=== PATIENT | male | born 1985 ===

== ENCOUNTER 2017-01-14 15:07 | Inpatient (IN) | payer MEDICAID, MEDICARE ==
[2017-01-14 15:07] VITALS: BMI 21.4
[2017-01-14] MEDS ORDERED: HYDROmorphone 0.5 mg/0.5 ml ISec ONE ×2 (15:28→16:19)
[2017-01-14] MEDS ORDERED: Sodium Chloride 0.9% 1,000 ML IV STA ×2 (15:30→16:47)
--- NOTE | 2017-01-14 15:45 | ED PDOC ---
HPI: Abdomen Time Seen by Provider: 01/14/17 15:14 Chief Complaint (Nursing): Abdominal Pain Chief Complaint (Provider): Abd pain History Per: Patient History/Exam Limitations: no limitations Onset/Duration Of Symptoms: Days (2) Outside of [place] travel?: No Current Symptoms Are (Timing): Still Present Additional Complaint(s): Pt. with diffuse abd pain and feels like his usual crohn's flare. Also with non bloody nausea, vomit, diarrhea. No back pain, chest pain, dyspnea, weakness , headaches. No fever. On suboxone, but not taking for 5 days. 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) - Surgical History Surgical History: Denies: Appendectomy, Cholecystectomy, Coronary Stent - Family History Family History: States: Unknown Family Hx - Social History Current smoker - smoking cessation education provided: No Alcohol: None Drugs: Denies - Immunization History Hx Tetanus Toxoid Vaccination: No Hx Influenza Vaccination: No Hx Pneumococcal Vaccination: No - Home Medications Home Medications: Ambulatory Orders Medication Instructions Recorded Famotidine [Pepcid] 20 mg IVP Q12 vial 11/20/16 - Allergies Allergies/Adverse Reactions: Allergies Allergy/AdvReac Type Severity Reaction Status Date / Time ciprofloxacin Allergy RASH Verified 01/14/17 15:09 iodine Allergy ANAPHYLAXIS Verified 01/14/17 15:09 morphine Allergy RASH Verified 01/14/17 15:09 Review of Systems ROS Statement: Except As Marked, All Systems Reviewed And Found Negative Gastrointestinal: Positive for: Abdominal Pain Physical Exam - Reviewed Nursing Documentation Reviewed: Yes Vital Signs Reviewed: Yes - Physical Exam Appears: Positive for: Non-toxic, No Acute Distress Head Exam: Positive for: ATRAUMATIC, NORMAL INSPECTION, NORMOCEPHALIC Skin: Positive for: Normal Color, Warm, DRY Eye Exam: Positive for: EOMI, Normal appearance, PERRL ENT: Positive for: Normal ENT Inspection Neck: Positive for: Normal, Painless ROM Cardiovascular/Chest: Positive for: Regular Rate, Rhythm Respiratory: Positive for: CNT, Normal Breath Sounds Gastrointestinal/Abdominal: Positive for: Bowel Sounds, Soft, Tenderness ( diffuse and guarding) Back: Positive for: Normal Inspection. Negative for: L CVA Tenderness, R CVA Tenderness Extremity: Positive for: Normal ROM Neurologic/Psych: Positive for: Alert, Oriented - Laboratory Results Result Diagrams: 01/14/17 15:40 01/14/17 15:40 Interpretation Of Abn Labs: 11.4 wbc, 22 bands - ECG O2 Sat by Pulse Oximetry: 98 Pulse Ox Interpretation: Normal - Progress ED Course And Treament: 1749: Stable. Dr. Madera to fu on ct and dispo. Disposition - Clinical Impression Clinical Impression: Abdominal pain - Patient ED Disposition Is Patient to be Admitted: Transfer of Care - Disposition Disposition Time: 17:50 Condition: STABLE Patient Signed Over To: Collins Madera
[2017-01-14 15:51] LABS: BASO % 0.3 % (0.0-2.0); EOS # 0.1 K/uL (0.0-0.7); EOS % 0.8 % (0.0-4.0); LYMPH # 1.5 K/uL (1.0-4.3); LYMPH % 12.9 % (20.0-40.0); MEAN CELL VOLUME 82.5 fl (80.0-94.0); MEAN CORPUSCULAR HEMOGLOBIN 25.7 pg (27.0-31.0); MEAN CORPUSCULAR HGB CONC 31.1 g/dL (33.0-37.0); MEAN PLATELET VOLUME 7.5 fl (7.2-11.7); MONO % 17.2 % (0.0-10.0); NEUT # 7.8 K/uL (1.8-7.0); NEUT % 68.8 % (50.0-75.0); NRBC % 0.1 % (0.0-0.0); RED CELL DISTRIBUTION WIDTH 19.9 % (11.5-14.5); WHITE BLOOD COUNT 11.4 K/uL (4.8-10.8)
[2017-01-14 15:52] LABS: PLATELET COUNT 741 K/uL (130-400)
[2017-01-14 15:59] LABS: ALB/GLOB RATIO 0.8 (1.0-2.1); ALKALINE PHOSPHATASE 104 U/L (38-126); ALT/SGPT 35 U/L (21-72); AST/SGOT 29 U/L (17-59); BILIRUBIN,TOTAL 0.6 mg/dl (0.2-1.3); BLOOD UREA NITROGEN 17 mg/dl (9-20); CALCIUM 9.3 mg/dL (8.4-10.2); CARBON DIOXIDE 26 mmol/L (22-30); CHLORIDE 95 mmol/L (98-107); GFR AFRICAN-AMERICAN > 60; GLUCOSE,RANDOM 110 mg/dL (75-110); LIPASE 12 U/L (23-300); SODIUM 144 mmol/l (132-148); TOTAL PROTEIN 9.4 G/DL (6.3-8.2)
[2017-01-14 16:28] LABS: EOSINOPHIL 1 % (0-7); NEUTROPHIL 52 % (42-75); TOTAL CELLS COUNTED 100
[2017-01-14 16:30] LABS: LARGE PLATELETS PRESENT; SPHEROCYTES SLIGHT
[2017-01-14 17:13] LABS: VENOUS BLOOD GAS PCO2 50 mmHg (40-60)
[2017-01-14] MEDS ORDERED: Sodium Chloride 0.9% 50 ML IV ONE (17:39)
[2017-01-14] MEDS ORDERED: Iohexol 300 100 ML IJ ONE (17:39)
[2017-01-14] MEDS ORDERED: metroNIDAZOLE 500mg/100ml NS 100 ML IVPB STA (17:49)
[2017-01-14] MEDS ORDERED: metroNIDAZOLE 500mg/100ml NS 100 ML IVPB ONE (17:58)
[2017-01-14] MEDS ORDERED: cefTRIAXone (Rocephin) 1 gm Inj IV ONE (18:00)
[2017-01-14] MEDS ORDERED: cefTRIAXone (Rocephin) 1 gm Inj ONE (19:13)
--- NOTE | 2017-01-14 19:30 | ED PDOC ---
- Laboratory Results Result Diagrams: 01/14/17 15:40 01/14/17 15:40 - ECG O2 Sat by Pulse Oximetry: 98 Medical Decision Making Medical Decision Makin:00 Patient is signed out to me by Eber Rosen MD pending CT scan, reevaluation and final disposition. 18:48 CT abd and pelvis w/o contrast EXAM: CT Abdomen and Pelvis Without Intravenous Contrast. CLINICAL HISTORY: 31 years old, male; Pain; Abdominal pain; Generalized; Prior surgery; Surgery date: 6+ months; Surgery type: Multiple abd SX HX chron's TECHNIQUE: Axial computed tomography images of the abdomen and pelvis without intravenous contrast. This CT exam was performed using one or more of the following dose reduction techniques: automated exposure control, adjustment of the mA and/or kV according to patient size, and/ or use of iterative reconstruction technique. EXAM DATE/TIME: 01/14/2017 3:26 PM COMPARISON: CT - ABD PELVIS PO CONTRAST ONLY 11/16/2016 10:30:35 PM FINDINGS: Lower thorax: No acute findings. ABDOMEN: Liver: Unremarkable. Gallbladder and bile ducts: Unremarkable. No calcified stones. No ductal dilation. Pancreas: Unremarkable. No ductal dilation. Spleen: Unremarkable. No splenomegaly. Adrenals: Unremarkable. No mass. Kidneys and ureters: Unremarkable. No obstructing stones. No hydronephrosis. Stomach and bowel: Stable postsurgical changes from prior bowel resection. Again noted is diffuse distention of the small and large bowel to the level of the anastomosis in the rectum. This is not significantly changed when compared with 11/16/16. Appendix: No findings to suggest acute appendicitis. PELVIS: Bladder: Unremarkable. No stones. Reproductive: Unremarkable as visualized. ABDOMEN and PELVIS: Intraperitoneal space: Unremarkable. No free air. No significant fluid collection. Bones/joints: No acute fracture. No dislocation. Soft tissues: Unremarkable. Vasculature: Unremarkable. No abdominal aortic aneurysm. Lymph nodes: Unremarkable. No enlarged lymph nodes. IMPRESSION: Again noted is diffuse distention of the small and large bowel to the level of the anastomosis in the rectum. This is not significantly changed when compared with 11/16/16. This may be due to an obstruction, a pseudoobstruction or global ileus. 19:[address] Soriano and Dr. Clark. Patient will be admitted to the hospital (med/surg) for an intestinal obstruction and crohns disease. Patient's condition is fair. Discussed results and plan to admit with patient who expresses understanding. All questions answered and there is agreement with the plan. Scribe Attestation: Documented by Lupe Cuellar, acting as a scribe for Collins Madera MD. Provider Scribe Attestation: All medical record entries made by the Scribe were at my direction and personally dictated by me. I have reviewed the chart and agree that the record accurately reflects my personal performance of the history, physical exam, medical decision making, and the department course for this patient. I have also personally directed, reviewed, and agree with the discharge instructions and disposition. Disposition Discussed With : Codey Soriano - Clinical Impression Clinical Impression: Bowel obstruction, Abdominal pain, Exacerbation of Crohn's disease - POA Present On Arrival: None - Disposition Disposition: Routine/Home Disposition Time: 19:15 Condition: STABLE
--- NOTE | 2017-01-14 19:57 | CP.PCM.HP ---
History of Present Illness - History of Present Illness History of Present Illness: 31 yo male with history of Crohns Disease post colectomy with ileoanal anastomosis complained of generalized and diffuse abdominal pain since 2 days ago accompanied watery diarrhea, nausea and vomiting. Patient claimed he has no oral intake since 2 days ago. Denied fever, chill, SOB or chest pain. Present on Admission - Present on Admission Any Indicators Present on Admission: No History of DVT/PE: No History of Uncontrolled Diabetes: No Urinary Catheter: No Decubitus Ulcer Present: No Review of Systems - Review of Systems All systems: reviewed and no additional remarkable complaints except (aside from those mentioned above, 12 point system review werte negative by me) Past Patient History - Infectious Disease Hx of Infectious Diseases: C.diff, MRSA - Tetanus Immunizations Tetanus Immunization: Unknown - Past Medical History & Family History Past Medical History?: Yes - Past Social History Smoking Status: Never Smoked Chewing Tobacco Use: No Cigar Use: No Alcohol: None Drugs: Denies - CARDIAC Hx Cardiac Disorders: No Hx Hypertension: No - PULMONARY Hx Emphysema: No Hx Pneumonia: Yes - NEUROLOGICAL Hx Neurological Disorder: No Hx Seizures: No - HEENT Hx HEENT Problems: No - RENAL Hx Chronic Kidney Disease: No - ENDOCRINE/METABOLIC Hx Endocrine Disorders: No - HEMATOLOGICAL/ONCOLOGICAL Hx Anemia: Yes - INTEGUMENTARY Hx Dermatological Problems: No - MUSCULOSKELETAL/RHEUMATOLOGICAL Hx Musculoskeletal Disorders: No Hx Rheumatoid Arthritis: No - GASTROINTESTINAL Hx Crohn's Disease: Yes Hx Diverticulitis: No - GENITOURINARY/GYNECOLOGICAL Hx Genitourinary Disorders: No - PSYCHIATRIC Hx Depression: No - SURGICAL HISTORY Hx Appendectomy: No Hx Cholecystectomy: No Hx Coronary Stent: No - ANESTHESIA Hx Anesthesia: Yes Hx Anesthesia Reactions: No Hx Malignant Hyperthermia: No Meds Allergies/Adverse Reactions: Allergies Allergy/AdvReac Type Severity Reaction Status Date / Time ciprofloxacin Allergy RASH Verified 01/14/17 15:09 iodine Allergy ANAPHYLAXIS Verified 01/14/17 15:09 morphine Allergy RASH Verified 01/14/17 15:09 Physical Exam - Constitutional Appears: Other (complaining of abdominal pain) - Head Exam Head Exam: ATRAUMATIC - Eye Exam Eye Exam: absent: Scleral icterus - ENT Exam ENT Exam: Mucous Membranes Moist - Neck Exam Neck exam: Negative for: Meningismus - Respiratory Exam Respiratory Exam: absent: Rhonchi, Wheezes, Respiratory Distress - Cardiovascular Exam Cardiovascular Exam: REGULAR RHYTHM, +S1, +S2 - GI/Abdominal Exam GI & Abdominal Exam: Normal Bowel Sounds, Soft. absent: Guarding, Rebound, Tenderness Additional comments: multiple abdominal surgical scars - Rectal Exam Rectal Exam: Deferred - Extremities Exam Extremities exam: Negative for: pedal edema - Back Exam Back exam: absent: tenderness - Neurological Exam Neurological exam: Alert, Oriented x3 - Psychiatric Exam Psychiatric exam: Normal Affect - Skin Skin Exam: Dry, Intact Results - Vital Signs Recent Vital Signs: Last Vital Signs Temp 98.7 F 01/14/17 15:09 Pulse 96 H 01/14/17 15:09 Resp 16 01/14/17 15:09 BP 126/91 H 01/14/17 15:09 Pulse Ox 98 01/14/17 19:42 - Labs Result Diagrams: 01/14/17 15:40 01/14/17 15:40 Labs: Laboratory Results - last 24 hr 01/14/17 01/14/17 15:40 17:08 WBC 11.4 H D RBC 5.57 Hgb 14.3 Hct 46.0 MCV 82.5 D MCH 25.7 L MCHC 31.1 L RDW 19.9 H Plt Count 741 H D MPV 7.5 Neut % (Auto) 68.8 Lymph % (Auto) 12.9 L [place] % (Auto) 17.2 H Eos % (Auto) 0.8 Baso % (Auto) 0.3 Neut # 7.8 H Lymph # 1.5 [place] # 2.0 H Eos # 0.1 Baso # 0.0 Neutrophils % (Manual) 52 Band Neutrophils % 22 H* Lymphocytes % (Manual) 13 L Monocytes % (Manual) 12 H Eosinophils % (Manual) 1 Platelet Estimate Increased H Large Platelets Present Poikilocytosis (manual Slight Anisocytosis (manual) Slight Spherocytes Slight Ovalocytes Slight pO2 48 VBG pH 7.40 VBG pCO2 50 VBG HCO3 28.4 VBG Total CO2 32.5 H VBG O2 Sat (Calc) 77.8 H VBG Base Excess 5.0 H VBG Potassium 3.6 Glucose 94 Lactate 1.0 FiO2 21.0 Sodium 144 136.0 Potassium 4.0 Chloride 95 L 103.0 Carbon Dioxide 26 Anion Gap 27 H BUN 17 Creatinine 0.9 Est GFR ( Amer) > 60 Est GFR (Non-Af Amer) > 60 Random Glucose 110 Calcium 9.3 Total Bilirubin 0.6 AST 29 ALT 35 Alkaline Phosphatase 104 Total Protein 9.4 H Albumin 4.3 Globulin 5.1 H Albumin/Globulin Ratio 0.8 L Lipase 12 L Venous Blood Potassium 3.6 Assessment & Plan (1) Exacerbation of Crohn's disease Status: Chronic Priority: High Comment: admit to med/surg. blood culture x 2. continue IV Rocephin and Flagyl. IV hydration with NSS 150cc/hr. keep NPO. GI consult with Dr Ingram ( GI fellow informed). Morphine 2mg IV q 4hrs prn for pain. Protonix 40mg IV daily
--- NOTE | 2017-01-14 21:15 | CP.PCM.CON ---
<Andres Clark - Last Filed: 01/14/17 21:21> History of Present Illness - History of Present Illness History of Present Illness: General Surgery Consult Re: Crohn's dz with intestinal obstruction HPI: 31M presented to ED with increasing general abdominal pain since Sunday. + Diarrhea, N/V, pain with defecation. Poor oral intake. Pt says pain is similar to last Crohn's flare in October where he Was NPO, given IVF and had a rectal tube placed. Pt has been treated multiple time for this issue. He currently is off his Crohn's meds because "they don't work" and he has not followed up with his GI doctors in many months. Currently pt C/O pain uncontrolled by meds. PMH: Crohn's, opiate dependence PSH: Colectomy with IAPA, 16 abdominal sx, anastomotic dilation for stricture SH: Denies Tobacco, EtOH, or drug use All: cipro, iodine, morphine Meds: Methadone Review of Systems - Review of Systems All systems: reviewed and no additional remarkable complaints except (as per HPI ) Past Patient History - Infectious Disease Hx of Infectious Diseases: C.diff, MRSA - Tetanus Immunizations Tetanus Immunization: Unknown - Past Medical History & Family History Past Medical History?: Yes - Past Social History Smoking Status: Never Smoked Chewing Tobacco Use: No Cigar Use: No Alcohol: None Drugs: Denies - CARDIAC Hx Cardiac Disorders: No Hx Hypertension: No - PULMONARY Hx Emphysema: No Hx Pneumonia: Yes - NEUROLOGICAL Hx Neurological Disorder: No Hx Seizures: No - HEENT Hx HEENT Problems: No - RENAL Hx Chronic Kidney Disease: No - ENDOCRINE/METABOLIC Hx Endocrine Disorders: No - HEMATOLOGICAL/ONCOLOGICAL Hx Anemia: Yes - INTEGUMENTARY Hx Dermatological Problems: No - MUSCULOSKELETAL/RHEUMATOLOGICAL Hx Musculoskeletal Disorders: No Hx Rheumatoid Arthritis: No - GASTROINTESTINAL Hx Crohn's Disease: Yes Hx Diverticulitis: No - GENITOURINARY/GYNECOLOGICAL Hx Genitourinary Disorders: No - PSYCHIATRIC Hx Depression: No - SURGICAL HISTORY Hx Appendectomy: No Hx Cholecystectomy: No Hx Coronary Stent: No - ANESTHESIA Hx Anesthesia: Yes Hx Anesthesia Reactions: No Hx Malignant Hyperthermia: No Meds Allergies/Adverse Reactions: Allergies Allergy/AdvReac Type Severity Reaction Status Date / Time ciprofloxacin Allergy RASH Verified 01/14/17 15:09 iodine Allergy ANAPHYLAXIS Verified 01/14/17 15:09 morphine Allergy RASH Verified 01/14/17 15:09 - Medications Medications: Current Medications Hydromorphone HCl (Dilaudid) 1 mg IVP Q4 PRN PRN Reason: abdominal pain Last Admin: 01/14/17 20:49 Dose: 1 mg Sodium Chloride (Sodium Chloride 0.9%) 1,000 mls @ 150 mls/hr IV .Q6H40M [facility] Metronidazole (Flagyl 500mg/100ml Ns) 100 mls @ 100 mls/hr IVPB Q8 [facility] Ceftriaxone Sodium 1 gm/ (Sodium Chloride) 100 mls @ 100 mls/hr IVPB DAILY [facility] Ondansetron HCl (Zofran Inj) 4 mg IVP Q4 [facility] Pantoprazole Sodium (Protonix Inj) 40 mg IVP DAILY [facility] Physical Exam - Constitutional Appears: Cachectic, Chronically Ill - Head Exam Head Exam: ATRAUMATIC, NORMOCEPHALIC - Eye Exam Eye Exam: EOMI. absent: Scleral icterus - ENT Exam ENT Exam: Mucous Membranes Dry Additional comments: trachea midline - Respiratory Exam Respiratory Exam: NORMAL BREATHING PATTERN. absent: Respiratory Distress - Cardiovascular Exam Cardiovascular Exam: RRR, +S1, +S2 - GI/Abdominal Exam GI & Abdominal Exam: Distended, Firm, Guarding, Tenderness (generalized). absent: Rigid, Soft Additional comments: surgical scars seen - Rectal Exam Rectal Exam: Deferred - Extremities Exam Extremities exam: Positive for: normal capillary refill, pedal pulses present. Negative for: calf tenderness - Back Exam Back exam: absent: CVA tenderness (L), CVA tenderness (R) - Neurological Exam Neurological exam: Alert, Oriented x3 - Psychiatric Exam Psychiatric exam: Normal Affect, Normal Mood - Skin Skin Exam: Dry, Warm Results - Vital Signs Recent Vital Signs: Last Vital Signs Temp 98.1 F 01/14/17 20:53 Pulse 84 01/14/17 20:53 Resp 18 01/14/17 20:53 BP 124/88 01/14/17 20:53 Pulse Ox 98 01/14/17 20:53 - Labs Result Diagrams: 01/14/17 15:40 01/14/17 15:40 - Imaging and Cardiology CT scan - abdomen Status: Image reviewed by me, Report reviewed by me Assessment & Plan - Assessment and Plan (Free Text) Assessment: 31M with Hx of Crohns, with exacerbation Plan: Recommend decompression via rectal tube F/U GI recs IV Abx IVF Pain meds NPO D/W Dr. Elizabeth Clark PGY3 <Mac Johnson - Last Filed: 01/17/17 17:10> Results - Vital Signs Recent Vital Signs: Last Vital Signs Temp 98.2 F 01/16/17 22:34 Pulse 72 01/16/17 22:34 Resp 18 01/16/17 22:34 BP 106/69 01/16/17 22:34 Pulse Ox 98 01/16/17 22:34 - Labs Result Diagrams: 01/16/17 19:00 01/16/17 19:00 Labs: Laboratory Results - last 24 hr 01/16/17 19:00 WBC 5.7 RBC 4.76 Hgb 12.4 Hct 40.0 MCV 84.0 MCH 26.0 L MCHC 31.0 L RDW 19.0 H Plt Count 455 H D Sodium 134 Potassium 3.9 Chloride 106 Carbon Dioxide 18 L Anion Gap 14 BUN 8 L Creatinine 0.8 Est GFR ( Amer) > 60 Est GFR (Non-Af Amer) > 60 Random Glucose 77 Calcium 8.0 L Total Bilirubin 0.1 L AST 21 ALT 25 Alkaline Phosphatase 60 Total Protein 6.7 Albumin 3.1 L D Globulin 3.6 Albumin/Globulin Ratio 0.9 L Attending/Attestation - Attestation I have personally seen and examined this patient.: Yes I have fully participated in the care of the patient.: Yes I have reviewed all pertinent clinical information: Yes Notes (Text): 01/17/17 17:09 Pt was seen and examined at bedside on 01/15/17 Agree with above note and assessment. Pt with Crohns dis and J pouch Stenosis Rectal tube insertion GI F.U C/w current mx Plan d.w pt in detail Risk and benefit explained in detail.
[2017-01-14] MEDS: Sodium Chloride 0.9% 1,000 ML IV SCH (23:00)
[2017-01-15] MEDS: metroNIDAZOLE 500mg/100ml NS 100 ML IVPB SCH ×3 (02:30→17:21)
[2017-01-15] MEDS: Sodium Chloride 0.9% 1,000 ML IV SCH ×4 (05:41→23:00)
[2017-01-15] MEDS ORDERED: DiphenhydrAMINE 50 mg/ml Inj IVP STA ×2 (06:53→22:23)
[2017-01-15] MEDS ORDERED: Lidocaine 2% Jelly (Uro-Jet) TOP ONE (06:54)
--- NOTE | 2017-01-15 07:59 | CT ---
PROCEDURE: CT Abdomen and Pelvis without contrast. HISTORY: pain COMPARISON: Multiple CT most recently from 11/16/2016. TECHNIQUE: Contiguous axial images of the abdomen and pelvis. No oral or contrast given. Coronal and Sagittal reformats generated. Please note that due to lack of intravenous and oral contrast, evaluation of soft tissue structures and bowel is limited. Radiation dose: Total exam DLP = 400.03 mGy-cm. FINDINGS: LOWER THORAX: Unremarkable. LIVER: Unremarkable. No gross lesion or ductal dilatation. GALLBLADDER AND BILE DUCTS: Gallbladder not seen. PANCREAS: Suboptimally seen particularly in near the pancreatic head. SPLEEN: Unremarkable. No splenomegaly. ADRENALS: Unremarkable. KIDNEYS AND URETERS: Punctate calculi in the left kidney. No definite hydronephrosis. Ureters are suboptimally seen. BLADDER: Mildly distended urinary bladder limiting evaluation. REPRODUCTIVE: Unremarkable. APPENDIX: Not seen. BOWEL: Significant distended loops of large and small bowel re- demonstrated. Surgical mireya seen near the rectum. Patient is status post colonic resection with anastomosis name rectum. This is not significantly changed since 11/16/2016. PERITONEUM: Unremarkable. No fluid collection. No free air. LYMPH NODES: Prominent lymphadenopathy in the root of the mesentery. VASCULATURE: Unremarkable. No aortic aneurysm. BONES: No fracture or destructive lesion. OTHER FINDINGS: None. IMPRESSION: Significantly distended loops of large and small bowel, re- demonstrated. This is not significantly changed since 11/16/2016. Please note that this report is in general agreement with the preliminary report provided by [facility].
[2017-01-15] MEDS ORDERED: Lidocaine 1% Inj (20ml) ONE (08:05)
--- NOTE | 2017-01-15 08:49 | CP.PCM.PN ---
<TaishaJohn paz Gage - Last Filed: 01/15/17 08:46> Subjective - Date & Time of Evaluation Date of Evaluation: 01/15/17 Time of Evaluation: 08:46 - Subjective Subjective: Gen Surg: Dr Johnson Pt S&E. NEGRITOO. Still reports intense abdominal discomfort 2/2 J-pouch stenosis. Pt has been admitted for this problem multiple times. Needs rectal drainage. Denies N/V, F/C. 24Fr Rectal tube placed at bedside with immediate 200cc liquid stool release. Objective - Vital Signs/Intake and Output Vital Signs (last 24 hours): Temp Pulse Resp BP Pulse Ox 98.4 F 73 18 116/83 98 01/14/17 22:20 01/14/17 22:20 01/14/17 22:20 01/14/17 22:20 01/15/17 02:19 - Medications Medications: Current Medications Hydromorphone HCl (Dilaudid) 1 mg IVP Q4 PRN PRN Reason: abdominal pain Last Admin: 01/14/17 20:49 Dose: 1 mg Hydromorphone HCl (Dilaudid) 2 mg IVP Q2 PRN PRN Reason: Pain, severe (8-10) Last Admin: 01/15/17 07:02 Dose: 2 mg Sodium Chloride (Sodium Chloride 0.9%) 1,000 mls @ 150 mls/hr IV .Q6H40M [facility] Last Admin: 01/15/17 05:41 Dose: Not Given Metronidazole (Flagyl 500mg/100ml Ns) 100 mls @ 100 mls/hr IVPB Q8 [facility] Last Admin: 01/15/17 02:30 Dose: 100 mls/hr Ceftriaxone Sodium 1 gm/ (Sodium Chloride) 100 mls @ 100 mls/hr IVPB DAILY [facility] Ondansetron HCl (Zofran Inj) 4 mg IVP Q4 [facility] Last Admin: 01/15/17 05:47 Dose: 4 mg Pantoprazole Sodium (Protonix Inj) 40 mg IVP DAILY [facility] - Constitutional Appears: Non-toxic, No Acute Distress - Respiratory Exam Respiratory Exam: absent: Accessory Muscle Use, Respiratory Distress - Cardiovascular Exam Cardiovascular Exam: REGULAR RHYTHM. absent: Tachycardia - GI/Abdominal Exam GI & Abdominal Exam: Distended, Soft, Tenderness (diffuse). absent: Firm, Guarding - Neurological Exam Neurological Exam: Alert, Awake, Oriented x3 - Psychiatric Exam Psychiatric exam: Normal Affect, Normal Mood - Skin Skin Exam: Normal Color, Warm Assessment and Plan - Assessment and Plan (Free Text) Assessment: 31M with hx of Crohn's admitted for mgmt of chronic J-pouch stenosis Plan: rectal tube inserted cont tube drainage pain medication PRN pt clear to have water d/w Dr Elizabeth Sumner, PGY2 <Mac Johnson B - Last Filed: 01/17/17 16:21> Objective - Vital Signs/Intake and Output Vital Signs (last 24 hours): Temp Pulse Resp BP Pulse Ox 98.2 F 72 18 106/69 98 01/16/17 22:34 01/16/17 22:34 01/16/17 22:34 01/16/17 22:34 01/16/17 22:34 - Medications Medications: Current Medications Hydromorphone HCl (Dilaudid) 1 mg IVP Q4 PRN PRN Reason: Pain, moderate (4-7) Last Admin: 01/17/17 12:42 Dose: 1 mg Hydromorphone HCl (Dilaudid) 2 mg IVP Q2 PRN PRN Reason: Pain, severe (8-10) Last Admin: 01/17/17 09:31 Dose: 2 mg Sodium Chloride (Sodium Chloride 0.9%) 1,000 mls @ 150 mls/hr IV .Q6H40M [facility] Last Admin: 01/17/17 05:03 Dose: 150 mls/hr Metronidazole (Flagyl 500mg/100ml Ns) 100 mls @ 100 mls/hr IVPB Q8 [facility] Last Admin: 01/17/17 09:21 Dose: 100 mls/hr Ceftriaxone Sodium 1 gm/ (Sodium Chloride) 100 mls @ 100 mls/hr IVPB DAILY [facility] Last Admin: 01/17/17 09:23 Dose: 100 mls/hr Ondansetron HCl (Zofran Inj) 4 mg IVP Q4 [facility] Last Admin: 01/17/17 09:26 Dose: Not Given Pantoprazole Sodium (Protonix Inj) 40 mg IVP DAILY [facility] Last Admin: 01/17/17 09:22 Dose: 40 mg - Labs Labs: 01/16/17 19:00 01/16/17 19:00 Attending/Attestation - Attestation I have personally seen and examined this patient.: Yes I have fully participated in the care of the patient.: Yes I have reviewed all pertinent clinical information, including history, physical exam and plan: Yes Notes (Text): 01/17/17 16:20 Pt was seen and examined at bedside on 01/15/17 Agree with above note and assessment. Pt with Stenosis of J pouch Now with rectal tube C.w current mx GI F.U Plan d.w pt in detail.
--- NOTE | 2017-01-15 10:28 | CP.PCM.PN ---
Subjective - Date & Time of Evaluation Date of Evaluation: 01/15/17 Time of Evaluation: 12:00 - Subjective Subjective: Patient seen and examined bedside. Feeling a little better. With rectal tube in place and liquid brown stool output to bag.Hemodynamically stable, afebrile. Objective - Vital Signs/Intake and Output Vital Signs (last 24 hours): Temp Pulse Resp BP Pulse Ox 98.4 F 73 18 116/83 98 01/14/17 22:20 01/14/17 23:41 01/14/17 23:41 01/14/17 22:20 01/15/17 02:19 - Medications Medications: Current Medications Hydromorphone HCl (Dilaudid) 1 mg IVP Q4 PRN PRN Reason: abdominal pain Last Admin: 01/14/17 20:49 Dose: 1 mg Hydromorphone HCl (Dilaudid) 2 mg IVP Q2 PRN PRN Reason: Pain, severe (8-10) Last Admin: 01/15/17 07:02 Dose: 2 mg Sodium Chloride (Sodium Chloride 0.9%) 1,000 mls @ 150 mls/hr IV .Q6H40M [facility] Last Admin: 01/15/17 08:59 Dose: 150 mls/hr Metronidazole (Flagyl 500mg/100ml Ns) 100 mls @ 100 mls/hr IVPB Q8 [facility] Last Admin: 01/15/17 08:53 Dose: 100 mls/hr Ceftriaxone Sodium 1 gm/ (Sodium Chloride) 100 mls @ 100 mls/hr IVPB DAILY [facility] Last Admin: 01/15/17 08:57 Dose: 100 mls/hr Ondansetron HCl (Zofran Inj) 4 mg IVP Q4 [facility] Last Admin: 01/15/17 08:55 Dose: 4 mg Pantoprazole Sodium (Protonix Inj) 40 mg IVP DAILY [facility] Last Admin: 01/15/17 08:54 Dose: 40 mg - Constitutional Appears: Non-toxic, No Acute Distress - Head Exam Head Exam: ATRAUMATIC, NORMAL INSPECTION, NORMOCEPHALIC - Eye Exam Eye Exam: EOMI, Normal appearance, PERRL Pupil Exam: NORMAL ACCOMODATION - ENT Exam ENT Exam: Mucous Membranes Moist, Normal Exam - Neck Exam Neck Exam: Full ROM, Normal Inspection - Respiratory Exam Respiratory Exam: Clear to Ausculation Bilateral, NORMAL BREATHING PATTERN. absent: Rales, Rhonchi, Wheezes - Cardiovascular Exam Cardiovascular Exam: REGULAR RHYTHM, RRR, +S1, +S2. absent: JVD - GI/Abdominal Exam GI & Abdominal Exam: Tenderness (with palpation), Hyperactive Bowel Sounds. absent: Distended, Guarding, Rebound Additional comments: multiple scars to abdomen - Rectal Exam Rectal Exam: Deferred - Extremities Exam Extremities Exam: Full ROM, Normal Capillary Refill, Normal Inspection. absent : Calf Tenderness, Pedal Edema - Back Exam Back Exam: NORMAL INSPECTION - Neurological Exam Neurological Exam: Alert, Awake, CN II-XII Intact, Oriented x3 - Psychiatric Exam Psychiatric exam: Agitated - Skin Skin Exam: Dry, Warm Assessment and Plan - Assessment and Plan (Free Text) Assessment: 31 y/o M with PMH Crohn's disease ( not on any medications for last 2 years ) , 16 abdominal surgeries, opioid dependence , presented to ER with increasing abdominal pain associated with Diarrhea, nausea and vomiting for 3 days. He states that he has not been able to eat for the last 2 days. He has been treated multiple time for this issue in the past and states that it feels like he is having another flare up.CT abdomen showed :Significantly distended loops of large and small bowel, re- demonstrated. This is not significantly changed since 11/16/2016. Patient admitted for Crohn flare up and suspected SBO 1. Crohn exacerbation Surgery and GI consulted Continue Flagyl and rocephin Rectal tube in place with liquid stool output Continue pain management IVF Start liquid diet
--- NOTE | 2017-01-15 17:29 | CP.PCM.CON ---
<Phill Paulino - Last Filed: 01/15/17 17:30> History of Present Illness - History of Present Illness History of Present Illness: PGY4 GI Fellow Consult Note Patient is a 31yo male with PMHx significant for Crohn's disease, not on any therapy at present who presented to the ED with abdominal pain. He states that pain began 3 days prior to admission with B/L lower abdominal pain and watery diarrhea. He stopped any oral intake for 24 hours but noted symptoms continued to worsen, thus he presented to the ED. The patient follows up with GI at [place] and had recent "digital dilation" of his recurrent anastomotic stricture as well as endoscopic evaluation. He has opted to avoid using any medications to treat his CD stating that they gave him too many negative side effects in the past. Currently, he admits to improvement in symptoms with decreased abdominal distention since placement of a rectal tube by surgery. Admits to nausea. Denies any vomiting, weight loss, hematochezia, melena. PMHx: See HPI PSHx: Colectomy with IAPA, 16 abdominal sx, anastomotic dilation for stricture FHx: Denies Social: Denies Tobacco, EtOH, or drug use Review of Systems - Constitutional Constitutional: absent: Anorexia, Chills, Fever - EENT Eyes: absent: Change in Vision Nose/Mouth/Throat: absent: Sore Throat - Cardiovascular Cardiovascular: absent: Chest Pain, Claudication, Diaphoresis - Respiratory Respiratory: absent: Cough, Hemoptysis, Excessive Mucous Production - Gastrointestinal Gastrointestinal: Abdominal Pain, Bloating, Diarrhea, Nausea. absent: Constipation, Cramping, Dyspepsia, Dysphagia, Hematemesis, Hematochezia, Melena , Odynophagia, Vomiting - Genitourinary Genitourinary: absent: Dysuria, Urinary Frequency, Urinary Urgency - Musculoskeletal Musculoskeletal: absent: Back Pain, Neck Pain - Integumentary Integumentary: absent: New Lesions, Rash - Neurological Neurological: absent: Dizziness, Numbness, Focal Weakness - Psychiatric Psychiatric: absent: Anxiety, Depression - Endocrine Endocrine: absent: Polydipsia, Polyphagia, Polyuria - Hematologic/Lymphatic Hematologic: absent: Easy Bleeding, Easy Bruising, Lymphadenopathy Past Patient History - Infectious Disease Hx of Infectious Diseases: C.diff, MRSA - Tetanus Immunizations Tetanus Immunization: Unknown - Past Medical History & Family History Past Medical History?: Yes - Past Social History Smoking Status: Current Some Days Smoker - CARDIAC Hx Cardiac Disorders: No Hx Hypertension: No - PULMONARY Hx Respiratory Disorders: Yes Hx Emphysema: No Hx Pneumonia: Yes Other/Comment: Current smoker - NEUROLOGICAL Hx Neurological Disorder: No Hx Seizures: No - HEENT Hx HEENT Problems: No - RENAL Hx Chronic Kidney Disease: No - ENDOCRINE/METABOLIC Hx Endocrine Disorders: No - HEMATOLOGICAL/ONCOLOGICAL Hx Blood Disorders: Yes Hx Anemia: Yes - INTEGUMENTARY Hx Dermatological Problems: No - MUSCULOSKELETAL/RHEUMATOLOGICAL Hx Falls: (Refuses to cooperate) - GASTROINTESTINAL Hx Gastrointestinal Disorders: Yes Hx Crohn's Disease: Yes Hx Diverticulitis: No - GENITOURINARY/GYNECOLOGICAL Hx Genitourinary Disorders: No - PSYCHIATRIC Hx Psychophysiologic Disorder: No Hx Depression: No - SURGICAL HISTORY Hx Appendectomy: No Hx Cholecystectomy: No Hx Coronary Stent: No - ANESTHESIA Hx Anesthesia: Yes Hx Anesthesia Reactions: No Hx Malignant Hyperthermia: No Meds Allergies/Adverse Reactions: Allergies Allergy/AdvReac Type Severity Reaction Status Date / Time ciprofloxacin Allergy RASH Verified 01/14/17 15:09 iodine Allergy ANAPHYLAXIS Verified 01/14/17 15:09 morphine Allergy RASH Verified 01/14/17 15:09 - Medications Medications: Current Medications Hydromorphone HCl (Dilaudid) 1 mg IVP Q4 PRN PRN Reason: abdominal pain Last Admin: 01/14/17 20:49 Dose: 1 mg Hydromorphone HCl (Dilaudid) 2 mg IVP Q2 PRN PRN Reason: Pain, severe (8-10) Last Admin: 01/15/17 16:41 Dose: 2 mg Sodium Chloride (Sodium Chloride 0.9%) 1,000 mls @ 150 mls/hr IV .Q6H40M [facility] Last Admin: 01/15/17 08:59 Dose: 150 mls/hr Metronidazole (Flagyl 500mg/100ml Ns) 100 mls @ 100 mls/hr IVPB Q8 [facility] Last Admin: 01/15/17 08:53 Dose: 100 mls/hr Ceftriaxone Sodium 1 gm/ (Sodium Chloride) 100 mls @ 100 mls/hr IVPB DAILY [facility] Last Admin: 01/15/17 08:57 Dose: 100 mls/hr Ondansetron HCl (Zofran Inj) 4 mg IVP Q4 [facility] Last Admin: 01/15/17 17:17 Dose: 4 mg Pantoprazole Sodium (Protonix Inj) 40 mg IVP DAILY [facility] Last Admin: 01/15/17 08:54 Dose: 40 mg Physical Exam - Constitutional Appears: Non-toxic, No Acute Distress - Eye Exam Eye Exam: EOMI, PERRL - ENT Exam ENT Exam: Mucous Membranes Dry - Respiratory Exam Respiratory Exam: Clear to Auscultation Bilateral. absent: Rales, Rhonchi, Wheezes - Cardiovascular Exam Cardiovascular Exam: RRR, +S1, +S2 - GI/Abdominal Exam GI & Abdominal Exam: Normal Bowel Sounds, Soft, Tenderness (B/L lower quadrants) . absent: Distended, Firm, Guarding, Organomegaly, Rigid - Extremities Exam Extremities exam: Positive for: normal inspection. Negative for: pedal edema - Neurological Exam Neurological exam: Alert, Oriented x3 - Psychiatric Exam Psychiatric exam: Normal Affect, Normal Mood - Skin Skin Exam: Dry, Warm Results - Vital Signs Recent Vital Signs: Last Vital Signs Temp 98.4 F 01/14/17 22:20 Pulse 73 01/14/17 23:41 Resp 18 01/14/17 23:41 BP 116/83 01/14/17 22:20 Pulse Ox 98 01/15/17 02:19 - Labs Result Diagrams: 01/14/17 15:40 01/14/17 15:40 Labs: Laboratory Results - last 24 hr 01/15/17 13:00 C. difficile Ag & Toxin Negative Assessment & Plan - Assessment and Plan (Free Text) Assessment: Patient is a 31yo male with PMHx significant for Crohn's disease refusing any medical therapy, s/p multiple abdominal surgeries including ileal pouch anal anastomosis with last anastamotic stricture digital dilation 10/[address] [place] [address] Acuna, last flare 10/2016 who presented to the ED with c/o abdominal pain. -Acute Crohn's flare Plan: -Rectal tube in place with high volume output -Check stool cx; C diff negative -Advance diet as tolerated -Plan for possible D/C tomorrow if lab/micro findings unremarkable and patient tolerating diet -Avoid NSAIDs and narcotics -Follow up outpatient with primary GI - Date & Time Date: 01/15/17 Time: 11:50 <Pee Ingram MD - Last Filed: 01/15/17 20:17> Meds - Medications Medications: Current Medications Hydromorphone HCl (Dilaudid) 1 mg IVP Q4 PRN PRN Reason: abdominal pain Last Admin: 01/15/17 18:23 Dose: 1 mg Hydromorphone HCl (Dilaudid) 2 mg IVP Q2 PRN PRN Reason: Pain, severe (8-10) Last Admin: 01/15/17 16:41 Dose: 2 mg Sodium Chloride (Sodium Chloride 0.9%) 1,000 mls @ 150 mls/hr IV .Q6H40M [facility] Last Admin: 01/15/17 08:59 Dose: 150 mls/hr Metronidazole (Flagyl 500mg/100ml Ns) 100 mls @ 100 mls/hr IVPB Q8 [facility] Last Admin: 01/15/17 17:21 Dose: 100 mls/hr Ceftriaxone Sodium 1 gm/ (Sodium Chloride) 100 mls @ 100 mls/hr IVPB DAILY [facility] Last Admin: 01/15/17 08:57 Dose: 100 mls/hr Ondansetron HCl (Zofran Inj) 4 mg IVP Q4 [facility] Last Admin: 01/15/17 17:17 Dose: 4 mg Pantoprazole Sodium (Protonix Inj) 40 mg IVP DAILY [facility] Last Admin: 01/15/17 08:54 Dose: 40 mg Results - Vital Signs Recent Vital Signs: Last Vital Signs Temp 97.7 F 01/15/17 17:43 Pulse 75 01/15/17 17:43 Resp 18 01/15/17 17:43 BP 102/65 01/15/17 17:43 Pulse Ox 98 01/15/17 17:43 - Labs Result Diagrams: 01/14/17 15:40 01/14/17 15:40 Labs: Laboratory Results - last 24 hr 01/15/17 13:00 C. difficile Ag & Toxin Negative Attending/Attestation - Attestation I have personally seen and examined this patient.: Yes I have fully participated in the care of the patient.: Yes I have reviewed all pertinent clinical information: Yes Notes (Text): 01/15/17 20:15 Patient seen and examined with GI fellow on rounds this am. This is a 31yo male with PMHx significant for Crohn's disease refusing any medical therapy, s/p multiple abdominal surgeries including ileal pouch anal anastomosis with last anastamotic stricture digital dilation 10/[address] [place] [address] Acuna, last flare 10/2016 who presented to the ED with c/o abdominal pain. In setting of pain medications had bowel obstruction. now rectal tube in place with high volume output and passing flatus. Tolerating diet. No s/s of obstruction. Thank you for letting us participate in the care of your patient.
[2017-01-16] MEDS: metroNIDAZOLE 500mg/100ml NS 100 ML IVPB SCH ×3 (00:27→17:33)
[2017-01-16] MEDS: Sodium Chloride 0.9% 1,000 ML IV SCH ×2 (04:36→22:50)
--- NOTE | 2017-01-16 07:26 | CP.PCM.PN ---
<Dionna Huerta - Last Filed: 01/16/17 13:36> Subjective - Date & Time of Evaluation Date of Evaluation: 01/16/17 Time of Evaluation: 06:40 - Subjective Subjective: GENERAL SURGERY PROGRESS NOTE FOR DR. JOHNSON: Pt seen and evaluated at bedside this morning. Says the abdominal pain is somewhat better today but says that he still felt cramping overnight. Says the rectal tube and pain meds are helping. Reports tolerating diet. Denies f/n/v/c/ sob/cp. Objective - Vital Signs/Intake and Output Vital Signs (last 24 hours): Temp Pulse Resp BP Pulse Ox 97.9 F 84 20 99/63 L 98 01/15/17 21:44 01/15/17 21:44 01/15/17 21:44 01/15/17 21:44 01/15/17 21:44 Intake and Output: 01/16/17 01/16/17 06:59 18:59 Output Total 1600 Balance -1600 - Medications Medications: Current Medications Hydromorphone HCl (Dilaudid) 2 mg IVP Q2 PRN PRN Reason: Pain, severe (8-10) Last Admin: 01/16/17 06:50 Dose: 2 mg Hydromorphone HCl (Dilaudid) 1 mg IVP Q4 PRN PRN Reason: Pain, moderate (4-7) Sodium Chloride (Sodium Chloride 0.9%) 1,000 mls @ 150 mls/hr IV .Q6H40M [facility] Last Admin: 01/16/17 04:36 Dose: 150 mls/hr Metronidazole (Flagyl 500mg/100ml Ns) 100 mls @ 100 mls/hr IVPB Q8 [facility] Last Admin: 01/16/17 00:27 Dose: 100 mls/hr Ceftriaxone Sodium 1 gm/ (Sodium Chloride) 100 mls @ 100 mls/hr IVPB DAILY [facility] Last Admin: 01/15/17 08:57 Dose: 100 mls/hr Ondansetron HCl (Zofran Inj) 4 mg IVP Q4 [facility] Last Admin: 01/16/17 05:00 Dose: Not Given Pantoprazole Sodium (Protonix Inj) 40 mg IVP DAILY [facility] Last Admin: 01/15/17 08:54 Dose: 40 mg - Constitutional Appears: Non-toxic, No Acute Distress - Head Exam Head Exam: ATRAUMATIC, NORMAL INSPECTION - Eye Exam Eye Exam: EOMI, Normal appearance - Cardiovascular Exam Cardiovascular Exam: REGULAR RHYTHM - GI/Abdominal Exam GI & Abdominal Exam: Distended (mild ), Soft, Tenderness (mild diffuse tenderness ). absent: Firm, Guarding, Rigid - Neurological Exam Neurological Exam: Alert, Awake, Oriented x3 - Psychiatric Exam Psychiatric exam: Normal Affect, Normal Mood - Skin Skin Exam: Normal Color, Warm Assessment and Plan - Assessment and Plan (Free Text) Assessment: 31 yo male pt. w/ pmhx Chrohn's admitted for management of chronic J-pouch stenosis. Plan: -Pt seen and evaluated -VSS, afebrile -Rectal tube removed -f/u GI recommendations (may need dilatation in future) -Stable per surgery for discharge -d/w Dr. Johnson -Dionna Huerta, PGY-1 <Mac Johnson - Last Filed: 01/17/17 16:25> Objective - Vital Signs/Intake and Output Vital Signs (last 24 hours): Temp Pulse Resp BP Pulse Ox 98.2 F 72 18 106/69 98 01/16/17 22:34 01/16/17 22:34 01/16/17 22:34 01/16/17 22:34 01/16/17 22:34 - Medications Medications: Current Medications Hydromorphone HCl (Dilaudid) 1 mg IVP Q4 PRN PRN Reason: Pain, moderate (4-7) Last Admin: 01/17/17 12:42 Dose: 1 mg Hydromorphone HCl (Dilaudid) 2 mg IVP Q2 PRN PRN Reason: Pain, severe (8-10) Last Admin: 01/17/17 09:31 Dose: 2 mg Sodium Chloride (Sodium Chloride 0.9%) 1,000 mls @ 150 mls/hr IV .Q6H40M [facility] Last Admin: 01/17/17 05:03 Dose: 150 mls/hr Metronidazole (Flagyl 500mg/100ml Ns) 100 mls @ 100 mls/hr IVPB Q8 [facility] Last Admin: 01/17/17 09:21 Dose: 100 mls/hr Ceftriaxone Sodium 1 gm/ (Sodium Chloride) 100 mls @ 100 mls/hr IVPB DAILY [facility] Last Admin: 01/17/17 09:23 Dose: 100 mls/hr Ondansetron HCl (Zofran Inj) 4 mg IVP Q4 [facility] Last Admin: 01/17/17 09:26 Dose: Not Given Pantoprazole Sodium (Protonix Inj) 40 mg IVP DAILY [facility] Last Admin: 01/17/17 09:22 Dose: 40 mg - Labs Labs: 01/16/17 19:00 01/16/17 19:00 Attending/Attestation - Attestation I have personally seen and examined this patient.: Yes I have fully participated in the care of the patient.: Yes I have reviewed all pertinent clinical information, including history, physical exam and plan: Yes Notes (Text): 01/17/17 16:24 Pt was seen and examined at bedside on 01/16/17 Agree with above note and assessment. DC Plan F/u with GI as out pt Plan d/w pt in detail.
--- NOTE | 2017-01-16 12:28 | CP.PCM.PN ---
Subjective - Date & Time of Evaluation Date of Evaluation: 01/16/17 Time of Evaluation: 12:00 - Subjective Subjective: No fever tolerated PO diet abd pain sl better Rectal tube -output more than 1600 no CP no SOB Objective - Vital Signs/Intake and Output Vital Signs (last 24 hours): Temp Pulse Resp BP Pulse Ox 97.9 F 84 20 99/63 L 98 01/15/17 21:44 01/15/17 21:44 01/15/17 21:44 01/15/17 21:44 01/15/17 21:44 Intake and Output: 01/16/17 01/16/17 06:59 18:59 Output Total 1600 Balance -1600 - Medications Medications: Current Medications Hydromorphone HCl (Dilaudid) 1 mg IVP Q4 PRN PRN Reason: Pain, moderate (4-7) Last Admin: 01/16/17 11:19 Dose: 1 mg Hydromorphone HCl (Dilaudid) 2 mg IVP Q4 PRN PRN Reason: Pain, severe (8-10) Last Admin: 01/16/17 08:56 Dose: 2 mg Sodium Chloride (Sodium Chloride 0.9%) 1,000 mls @ 150 mls/hr IV .Q6H40M [facility] Last Admin: 01/16/17 04:36 Dose: 150 mls/hr Metronidazole (Flagyl 500mg/100ml Ns) 100 mls @ 100 mls/hr IVPB Q8 [facility] Last Admin: 01/16/17 08:50 Dose: 100 mls/hr Ceftriaxone Sodium 1 gm/ (Sodium Chloride) 100 mls @ 100 mls/hr IVPB DAILY [facility] Last Admin: 01/16/17 08:49 Dose: 100 mls/hr Ondansetron HCl (Zofran Inj) 4 mg IVP Q4 [facility] Last Admin: 01/16/17 08:52 Dose: 4 mg Pantoprazole Sodium (Protonix Inj) 40 mg IVP DAILY [facility] Last Admin: 01/16/17 08:52 Dose: 40 mg - Constitutional Appears: No Acute Distress, Chronically Ill - Head Exam Head Exam: NORMAL INSPECTION, NORMOCEPHALIC - Eye Exam Eye Exam: EOMI, Normal appearance, PERRL Pupil Exam: NORMAL ACCOMODATION - ENT Exam ENT Exam: Mucous Membranes Moist, Normal External Ear Exam - Neck Exam Neck Exam: Full ROM. absent: Meningismus - Respiratory Exam Respiratory Exam: NORMAL BREATHING PATTERN. absent: Respiratory Distress - Cardiovascular Exam Cardiovascular Exam: REGULAR RHYTHM, +S1, +S2 - GI/Abdominal Exam GI & Abdominal Exam: Soft, Tenderness, Normal Bowel Sounds - Extremities Exam Extremities Exam: Full ROM, Normal Capillary Refill. absent: Calf Tenderness, Pedal Edema - Back Exam Back Exam: absent: CVA tenderness (L), CVA tenderness (R) - Neurological Exam Neurological Exam: Alert, Awake, CN II-XII Intact, Oriented x3 Neuro motor strength exam: Left Upper Extremity: 5, Right Upper Extremity: 5, Left Lower Extremity: 5, Right Lower Extremity: 5 - Psychiatric Exam Psychiatric exam: Flat Affect - Skin Skin Exam: Dry, Normal Color, Warm Assessment and Plan (1) Exacerbation of Crohn's disease Status: Chronic (2) Bowel obstruction Status: Acute - Assessment and Plan (Free Text) Assessment: 31 y/o M with PMH Crohn's disease ( not on any medications for last 2 years ) , 16 abdominal surgeries, opioid dependence , presented to ER with increasing abdominal pain associated with Diarrhea, nausea and vomiting for 3 days. He states that he has not been able to eat for the last 2 days. He has been treated multiple time for this issue in the past and states that it feels like he is having another flare up. CT abdomen showed :Significantly distended loops of large and small bowel, re- demonstrated. This is not significantly changed since 11/16/2016. Patient admitted for Crohn flare up and suspected SBO (1) Exacerbation of Crohn's disease Suspected Bowel Obstruction Hx of multiple surgeries due to Crohn's -pt comes with recurrence of abd pain - GI and Surgery consulted -Rectal tube place -large amount of output - he is tolerating PO diet - Pain mgt -Pt ff up with GI specialist at [place]- advised pt to ff up jcarlos - has hx of Stricture of his anastomosis thus this recurrent problem - started empirically on IV ceftriaxone and Flagyl (2) Opioid Dependence Pt on Dilaudid 2 mg IV q2 prn - will decrease to q 4 DVT proph - SCD - early ambulation
[2017-01-16] MEDS ORDERED: Lidocaine 2% Jelly (Uro-Jet) TOP ONE (13:00)
[2017-01-16] MEDS ORDERED: DiphenhydrAMINE 50 mg/ml Inj IVP ONE (13:10)
[2017-01-16 17:38] VITALS: RESP 18
[2017-01-16 19:14] LABS: WHITE BLOOD COUNT 5.7 K/uL (4.8-10.8)
[2017-01-16 19:30] LABS: ALB/GLOB RATIO 0.9 (1.0-2.1); ALKALINE PHOSPHATASE 60 U/L (38-126); ALT/SGPT 25 U/L (21-72); AST/SGOT 21 U/L (17-59); BILIRUBIN,TOTAL 0.1 mg/dl (0.2-1.3); BLOOD UREA NITROGEN 8 mg/dl (9-20); CARBON DIOXIDE 18 mmol/L (22-30); CHLORIDE 106 mmol/L (98-107); GFR AFRICAN-AMERICAN > 60; GLUCOSE,RANDOM 77 mg/dL (75-110); POTASSIUM 3.9 MMOL/L (3.6-5.0); SODIUM 134 mmol/l (132-148); TOTAL PROTEIN 6.7 G/DL (6.3-8.2)
[2017-01-16] MEDS ORDERED: DiphenhydrAMINE 50 mg/ml Inj IVP STA (21:52)
[2017-01-16 22:35] VITALS: BP 106/69; PULSE 72; TEMP 98.2; O2SAT 98
[2017-01-17] MEDS: metroNIDAZOLE 500mg/100ml NS 100 ML IVPB SCH ×2 (00:55→09:21)
[2017-01-17] MEDS: Sodium Chloride 0.9% 1,000 ML IV SCH ×2 (02:31→05:03)
--- NOTE | 2017-01-17 10:35 | CP.PCM.PN ---
Subjective - Date & Time of Evaluation Date of Evaluation: 01/17/17 Time of Evaluation: 10:15 - Subjective Subjective: Hospitalist Note Patient is doing well: tolerating diet and had 2 normal bowel movements this morning Vitals stable. Exam unremarkable He goes to a Methadone Clinic [facility] for Methadone everyday and is followed by Dr. Barreto there. He will follow up with his GI/Surgeon at [facility] and will obtain PMD at the [facility] His in July 2016 of complications of infection, skull fracture, heart infection. He was being seen by an unspecified Psyciatrist in [place] and was placed on Remeron 15 mg PO QHS and Xanax PRN but stopped these medications this past month. Consult placed for Psychiatry by Hospitalist Dr. Gómez on 01/16/17 to see if patient needs to be restarted on these medications. Patient is also looking for an outpatient Psychiatrist that he can follow up with in this area. Once Psychiatry sees patient and makes recommendations, patient will be discharged. Wood Mccord D.O. Objective - Vital Signs/Intake and Output Vital Signs (last 24 hours): Temp Pulse Resp BP Pulse Ox 98.2 F 72 18 106/69 98 01/16/17 22:34 01/16/17 22:34 01/16/17 22:34 01/16/17 22:34 01/16/17 22:34 - Medications Medications: Current Medications Hydromorphone HCl (Dilaudid) 1 mg IVP Q4 PRN PRN Reason: Pain, moderate (4-7) Last Admin: 01/17/17 06:55 Dose: 1 mg Hydromorphone HCl (Dilaudid) 2 mg IVP Q2 PRN PRN Reason: Pain, severe (8-10) Last Admin: 01/17/17 09:31 Dose: 2 mg Sodium Chloride (Sodium Chloride 0.9%) 1,000 mls @ 150 mls/hr IV .Q6H40M [facility] Last Admin: 01/17/17 05:03 Dose: 150 mls/hr Metronidazole (Flagyl 500mg/100ml Ns) 100 mls @ 100 mls/hr IVPB Q8 [facility] Last Admin: 01/17/17 09:21 Dose: 100 mls/hr Ceftriaxone Sodium 1 gm/ (Sodium Chloride) 100 mls @ 100 mls/hr IVPB DAILY [facility] Last Admin: 01/17/17 09:23 Dose: 100 mls/hr Ondansetron HCl (Zofran Inj) 4 mg IVP Q4 [facility] Last Admin: 01/17/17 09:26 Dose: Not Given Pantoprazole Sodium (Protonix Inj) 40 mg IVP DAILY [facility] Last Admin: 01/17/17 09:22 Dose: 40 mg - Labs Labs: 01/16/17 19:00 01/16/17 19:00
--- NOTE | 2017-01-17 11:32 | CP.PCM.PN ---
Subjective - Date & Time of Evaluation Date of Evaluation: 01/17/17 Time of Evaluation: 08:30 - Subjective Subjective: Gen Surg: Dr. Johnson Patient seen and examined. As per nursing rectal tube fell out last night. Pt reports he is having bowel movements and passing flatus. Patient states he feels better and more comfortable today. Tolerating diet. Objective - Vital Signs/Intake and Output Vital Signs (last 24 hours): Temp Pulse Resp BP Pulse Ox 98.2 F 72 18 106/69 98 01/16/17 22:34 01/16/17 22:34 01/16/17 22:34 01/16/17 22:34 01/16/17 22:34 - Medications Medications: Current Medications Hydromorphone HCl (Dilaudid) 1 mg IVP Q4 PRN PRN Reason: Pain, moderate (4-7) Last Admin: 01/17/17 06:55 Dose: 1 mg Hydromorphone HCl (Dilaudid) 2 mg IVP Q2 PRN PRN Reason: Pain, severe (8-10) Last Admin: 01/17/17 09:31 Dose: 2 mg Sodium Chloride (Sodium Chloride 0.9%) 1,000 mls @ 150 mls/hr IV .Q6H40M [facility] Last Admin: 01/17/17 05:03 Dose: 150 mls/hr Metronidazole (Flagyl 500mg/100ml Ns) 100 mls @ 100 mls/hr IVPB Q8 [facility] Last Admin: 01/17/17 09:21 Dose: 100 mls/hr Ceftriaxone Sodium 1 gm/ (Sodium Chloride) 100 mls @ 100 mls/hr IVPB DAILY [facility] Last Admin: 01/17/17 09:23 Dose: 100 mls/hr Ondansetron HCl (Zofran Inj) 4 mg IVP Q4 [facility] Last Admin: 01/17/17 09:26 Dose: Not Given Pantoprazole Sodium (Protonix Inj) 40 mg IVP DAILY [facility] Last Admin: 01/17/17 09:22 Dose: 40 mg - Labs Labs: 01/16/17 19:00 01/16/17 19:00 - Constitutional Appears: No Acute Distress - Head Exam Head Exam: NORMOCEPHALIC - Eye Exam Eye Exam: Normal appearance - ENT Exam ENT Exam: Mucous Membranes Moist - Respiratory Exam Respiratory Exam: NORMAL BREATHING PATTERN - Cardiovascular Exam Cardiovascular Exam: +S1, +S2 - GI/Abdominal Exam GI & Abdominal Exam: Soft. absent: Distended, Guarding, Tenderness - Neurological Exam Neurological Exam: Alert, Awake, Oriented x3 - Psychiatric Exam Psychiatric exam: Normal Mood - Skin Skin Exam: Dry, Intact, Warm Assessment and Plan - Assessment and Plan (Free Text) Assessment: 31M with hx of Crohn's admitted for mgmt of chronic J-pouch stenosis -Passing flatus and having BM -clear for d/c from surgical standpoint -F/u with primary GI -will d/w Dr. Johnson
--- NOTE | 2017-01-17 12:14 | CP.PCM.CON ---
History of Present Illness - History of Present Illness History of Present Illness: Psychiatry consult called for evaluation of depression HPI: 31yo male with PMHx significant for Crohn's disease, depression, panic attacks opioid dependence, presented to the ED with abdominal pain. Patient reports that he has been feeling depressed since the sudden of his in Jul 2016. He reports intermittent anxiety with panic attacks, difficulty sleeping due to nightmares, feeling depressed/hopeless at times. He reports that he was treated with both Remeron and Xanax in the past for one month and found it helpful, but did not follow-up again with the psychiatrist. He denies manic symptoms, paranoia, hallucinations, obsessions/compulsions. He does report some symptoms of dissociation, stating that sometimes he have periods of "blacking out" in which he will do things and not remember that he did them. He is interested in outpatient psychiatric treatment at this time. PPH: No h/o psychiatric admission. Was seen by a psychiatrist (doesn't recall the name) and was treated with Remeron and Xanax a few months ago. He denies h/ o suicide attempts. No current outpatient tx. PMH: Crohn's, opiate dependence (due to tx of chronic pain), h/o multiple concussions as per patient report PSH: Colectomy with IAPA, 16 abdominal sx, anastomotic dilation for stricture SH: Denies Tobacco, EtOH, or drug use; has a son, who is cared for by his mother. All: cipro, iodine, morphine FHx: Mother + Uncle with bipolar d/o, other Uncle w/ schizophrenia, other uncle committed suicide Meds: See list MSE: A + O x 3, well groomed, thin, no acute distress, mood "depressed", affect - broad/full range, speech normal rate/rhythm/volume, psychomotor normal, no hallucinations, no paranoia, no delusions, thought process-linear/coherent, no SI/HI, insight/judgment good Impression: 31yo male with PMHx significant for Crohn's disease, depression, panic attacks opioid dependence, likely with Adjustment disorder with depressed mood and anxiety disorder NOS r/o panic disorder.. Recommendations: -Remeron 15 mg PO HS -Klonopin 0.5 mg PO BID PRN anxiety -No acute psychiatric admission indicated -Would recommend SW refer him to outpatient psychiatric services Past Patient History - Infectious Disease Hx of Infectious Diseases: C.diff, MRSA - Tetanus Immunizations Tetanus Immunization: Unknown - Past Medical History & Family History Past Medical History?: Yes - Past Social History Smoking Status: Current Some Days Smoker - CARDIAC Hx Cardiac Disorders: No Hx Hypertension: No - PULMONARY Hx Respiratory Disorders: Yes Hx Emphysema: No Hx Pneumonia: Yes Other/Comment: Current smoker - NEUROLOGICAL Hx Neurological Disorder: No Hx Seizures: No - HEENT Hx HEENT Problems: No - RENAL Hx Chronic Kidney Disease: No - ENDOCRINE/METABOLIC Hx Endocrine Disorders: No - HEMATOLOGICAL/ONCOLOGICAL Hx Blood Disorders: Yes Hx Anemia: Yes - INTEGUMENTARY Hx Dermatological Problems: No - MUSCULOSKELETAL/RHEUMATOLOGICAL Hx Falls: (Refuses to cooperate) - GASTROINTESTINAL Hx Gastrointestinal Disorders: Yes Hx Crohn's Disease: Yes Hx Diverticulitis: No - GENITOURINARY/GYNECOLOGICAL Hx Genitourinary Disorders: No - PSYCHIATRIC Hx Psychophysiologic Disorder: No Hx Depression: No - SURGICAL HISTORY Hx Appendectomy: No Hx Cholecystectomy: No Hx Coronary Stent: No - ANESTHESIA Hx Anesthesia: Yes Hx Anesthesia Reactions: No Hx Malignant Hyperthermia: No Meds Allergies/Adverse Reactions: Allergies Allergy/AdvReac Type Severity Reaction Status Date / Time ciprofloxacin Allergy RASH Verified 01/14/17 15:09 iodine Allergy ANAPHYLAXIS Verified 01/14/17 15:09 morphine Allergy RASH Verified 01/14/17 15:09 - Medications Medications: Current Medications Hydromorphone HCl (Dilaudid) 1 mg IVP Q4 PRN PRN Reason: Pain, moderate (4-7) Last Admin: 01/17/17 06:55 Dose: 1 mg Hydromorphone HCl (Dilaudid) 2 mg IVP Q2 PRN PRN Reason: Pain, severe (8-10) Last Admin: 01/17/17 09:31 Dose: 2 mg Sodium Chloride (Sodium Chloride 0.9%) 1,000 mls @ 150 mls/hr IV .Q6H40M [facility] Last Admin: 01/17/17 05:03 Dose: 150 mls/hr Metronidazole (Flagyl 500mg/100ml Ns) 100 mls @ 100 mls/hr IVPB Q8 [facility] Last Admin: 01/17/17 09:21 Dose: 100 mls/hr Ceftriaxone Sodium 1 gm/ (Sodium Chloride) 100 mls @ 100 mls/hr IVPB DAILY [facility] Last Admin: 01/17/17 09:23 Dose: 100 mls/hr Ondansetron HCl (Zofran Inj) 4 mg IVP Q4 [facility] Last Admin: 01/17/17 09:26 Dose: Not Given Pantoprazole Sodium (Protonix Inj) 40 mg IVP DAILY [facility] Last Admin: 01/17/17 09:22 Dose: 40 mg Results - Vital Signs Recent Vital Signs: Last Vital Signs Temp 98.2 F 01/16/17 22:34 Pulse 72 01/16/17 22:34 Resp 18 01/16/17 22:34 BP 106/69 01/16/17 22:34 Pulse Ox 98 01/16/17 22:34 - Labs Result Diagrams: 01/16/17 19:00 01/16/17 19:00 Labs: Laboratory Results - last 24 hr 01/16/17 19:00 WBC 5.7 RBC 4.76 Hgb 12.4 Hct 40.0 MCV 84.0 MCH 26.0 L MCHC 31.0 L RDW 19.0 H Plt Count 455 H D Sodium 134 Potassium 3.9 Chloride 106 Carbon Dioxide 18 L Anion Gap 14 BUN 8 L Creatinine 0.8 Est GFR ( Amer) > 60 Est GFR (Non-Af Amer) > 60 Random Glucose 77 Calcium 8.0 L Total Bilirubin 0.1 L AST 21 ALT 25 Alkaline Phosphatase 60 Total Protein 6.7 Albumin 3.1 L D Globulin 3.6 Albumin/Globulin Ratio 0.9 L
--- NOTE | 2017-01-17 14:21 | CP.PCM.DIS ---
Provider - Provider Date of Admission: 01/14/17 19:15 Attending physician: David Leroy MD Primary care physician: None Consults: Surgery Dr. Michelle GI Dr. Pan Time Spent in preparation of Discharge (in minutes): 40 Hospital Course - Lab Results Lab Results: Micro Results 01/15/17 13:00 Stool Stool Culture - Final NO SALMONELLA, SHIGELLA OR CAMPYLOBACTER ISOLATED. Most Recent Lab Values WBC 5.7 K/uL (4.8-10.8) 01/16/17 19:00 RBC 4.76 Mil/uL (4.40-5.90) 01/16/17 19:00 Hgb 12.4 g/dL (12.0-18.0) 01/16/17 19:00 Hct 40.0 % (35.0-51.0) 01/16/17 19:00 MCV 84.0 fl (80.0-94.0) 01/16/17 19:00 MCH 26.0 pg (27.0-31.0) L 01/16/17 19:00 MCHC 31.0 g/dL (33.0-37.0) L 01/16/17 19:00 RDW 19.0 % (11.5-14.5) H 01/16/17 19:00 Plt Count 455 K/uL (130-400) H D 01/16/17 19:00 MPV 7.5 fl (7.2-11.7) 01/14/17 15:40 Neut % (Auto) 68.8 % (50.0-75.0) 01/14/17 15:40 Lymph % (Auto) 12.9 % (20.0-40.0) L 01/14/17 15:40 [place] % (Auto) 17.2 % (0.0-10.0) H 01/14/17 15:40 Eos % (Auto) 0.8 % (0.0-4.0) 01/14/17 15:40 Baso % (Auto) 0.3 % (0.0-2.0) 01/14/17 15:40 Neut # 7.8 K/uL (1.8-7.0) H 01/14/17 15:40 Lymph # 1.5 K/uL (1.0-4.3) 01/14/17 15:40 [place] # 2.0 K/uL (0.0-0.8) H 01/14/17 15:40 Eos # 0.1 K/uL (0.0-0.7) 01/14/17 15:40 Baso # 0.0 K/uL (0.0-0.2) 01/14/17 15:40 Neutrophils % (Manual) 52 % (42-75) 01/14/17 15:40 Band Neutrophils % 22 % (0-2) H* 01/14/17 15:40 Lymphocytes % (Manual) 13 % (20-50) L 01/14/17 15:40 Monocytes % (Manual) 12 % (0-10) H 01/14/17 15:40 Eosinophils % (Manual) 1 % (0-7) 01/14/17 15:40 Platelet Estimate Increased (NORMAL) H 01/14/17 15:40 Large Platelets Present 01/14/17 15:40 Poikilocytosis (manual Slight 01/14/17 15:40 Anisocytosis (manual) Slight 01/14/17 15:40 Spherocytes Slight 01/14/17 15:40 Ovalocytes Slight 01/14/17 15:40 pO2 48 mm/Hg (30-55) 01/14/17 17:08 VBG pH 7.40 (7.32-7.43) 01/14/17 17:08 VBG pCO2 50 mmHg (40-60) 01/14/17 17:08 VBG HCO3 28.4 mmol/L 01/14/17 17:08 VBG Total CO2 32.5 mmol/L (22-28) H 01/14/17 17:08 VBG O2 Sat (Calc) 77.8 % (40-65) H 01/14/17 17:08 VBG Base Excess 5.0 mmol/L (0.0-2.0) H 01/14/17 17:08 VBG Potassium 3.6 mmol/L (3.6-5.2) 01/14/17 17:08 Sodium 136.0 mmol/L (132-148) 01/14/17 17:08 Chloride 103.0 mmol/L (98-107) 01/14/17 17:08 Glucose 94 mg/dL (75-110) 01/14/17 17:08 Lactate 1.0 mmol/L (0.7-2.1) 01/14/17 17:08 FiO2 21.0 % 01/14/17 17:08 Sodium 134 mmol/l (132-148) 01/16/17 19:00 Potassium 3.9 MMOL/L (3.6-5.0) 01/16/17 19:00 Chloride 106 mmol/L (98-107) 01/16/17 19:00 Carbon Dioxide 18 mmol/L (22-30) L 01/16/17 19:00 Anion Gap 14 (10-20) 01/16/17 19:00 BUN 8 mg/dl (9-20) L 01/16/17 19:00 Creatinine 0.8 mg/dL (0.8-1.5) 01/16/17 19:00 Est GFR ( Amer) > 60 01/16/17 19:00 Est GFR (Non-Af Amer) > 60 01/16/17 19:00 Random Glucose 77 mg/dL (75-110) 01/16/17 19:00 Calcium 8.0 mg/dL (8.4-10.2) L 01/16/17 19:00 Total Bilirubin 0.1 mg/dl (0.2-1.3) L 01/16/17 19:00 AST 21 U/L (17-59) 01/16/17 19:00 ALT 25 U/L (21-72) 01/16/17 19:00 Alkaline Phosphatase 60 U/L (38-126) 01/16/17 19:00 Total Protein 6.7 G/DL (6.3-8.2) 01/16/17 19:00 Albumin 3.1 g/dL (3.5-5.0) L D 01/16/17 19:00 Globulin 3.6 gm/dL (2.2-3.9) 01/16/17 19:00 Albumin/Globulin Ratio 0.9 (1.0-2.1) L 01/16/17 19:00 Lipase 12 U/L (23-300) L 01/14/17 15:40 Venous Blood Potassium 3.6 mmol/L (3.6-5.2) 01/14/17 17:08 C. difficile Ag & Toxin Negative (NEGATIVE) 01/15/17 13:00 - Hospital Course Hospital Course: 31 year old male (PMHx of Crohn's Disease with multiple Abdominal Surgeries included Colectomy with Ileocecal Anastamosis) who was admitted on 01/14/17 for evaluation of generalized abdominal pain, diarrhea, nausea/vomiting. He was found to have Exacerbation of Crohn's Disease and rectal tube was placed. C. diff toxin was negative. Rectal Tube was removed on 01/16/17 and patient is tolerating PO diet. He has been cleared by Surgery and GI for discharge. Patient is doing well: tolerating diet and had 2 normal bowel movements this morning Vitals stable. Exam unremarkable He goes to a Methadone Clinic [facility] for Methadone everyday and is followed by Dr. Barreto there. He will follow up with his GI/Surgeon at [place] and will obtain PMD at the [facility] His in July 2016 of complications of infection, skull fracture, heart infection. He was being seen by an unspecified Psychiatrist in [place] and was placed on Remeron 15 mg PO QHS and Xanax PRN but stopped these medications this past month. Consult placed for Psychiatry by Hospitalist Dr. Gómez on 01/16/17 to see if patient needs to be restarted on these medications. Psychiatrist Dr. Gee evaluated patient and recommended restarting Remeron and using Klonopin 0.5 mg PO BID PRN as needed as well as follow up with outpatient Psychiatrist. HEENT: EOMI, PERRLA, NO cervical lymphadenopathy, NO thyromegaly, Oral Mucosa and Nasal Turbinates are moist, Pharyngeal mucosa is without exudated/ nonerythematous Cardio: NS1 and NS2, NO M/R/G Respiratory: CTA B/L, NO R/R/W GI: BSx4, Soft, ND, NT (felt soreness upon palpation of the bilateral Upper Quadrants), NO rebound tenderness/guarding, NO HSM Ext: NO edema, Capillary Refill is 2 seconds, Pulses are strong and equal Neuro: CN II thourgh XII are grossly intact The following information was gone over with the patient and copy of this discharge will also be provided to patient upon discharge: 1). Follow up with your GI Physicians at [place] in the next 7 to 10 days: Dr. Palomares and Dr. Gr 2). Since you do not have a Primary Care Physician please follow up with the [facility] here in [place] by calling [phone] and following the prompts for the Clinic/Health Center. Please do this within 7 days so that you are able to have a Primary Care Physician to help coordinate your care. 3). Through the [facility], obtain referral for Psychiatrist. You may also follow up with the Psychiatrist that has seen you in the past in [place]. 4). Follow up with Dr. Barreto at the [facility] for your Methadone treatment. 5). Prescriptions for the following medications has been provided to you. Each is for a 30 day supply. You must obtain refills through your Primary Care Physician at the [facility] Remeron 15 mg 1 tablet by mouth at night Klonopin 0.5 mg 1 tablet by mouth every 12 hours as needed for Anxiety. Wood Mccord D.O. Discharge Exam - Head Exam Head Exam: NORMOCEPHALIC Discharge Plan - Follow Up Plan Condition: STABLE Disposition: HOME/ ROUTINE
== END 2017-01-17 16:36 | disposition home or self-care (01) | DRG 386 ==
LOC: H.ER 15:07 → H.ERHOLD 19:15 → H.MEDSURG1 22:10
PROVIDERS: ADMIT Internal Medicine; ATTEND Internal Medicine
PROC: 0D9P30Z Drainage of Rectum with Drainage Device, Percutaneous Approach (ICD-10-PCS; principal; 2017-01-15)
DX: K50.90 Crohn's disease, unspecified, without complications (principal); K56.60 Unspecified intestinal obstruction; F11.20 Opioid dependence, uncomplicated; I25.10 Atherosclerotic heart disease of native coronary artery without angina pectoris; Z87.01 Personal history of pneumonia (recurrent); Z87.891 Personal history of nicotine dependence; F41.0 Panic disorder [episodic paroxysmal anxiety]

== ENCOUNTER 2017-05-08 17:30 | Observation (INO) | payer MEDICARE, MEDICAID ==
[2017-05-08 17:30] VITALS: BMI 21.4
[2017-05-08] MEDS ORDERED: Sodium Chloride 0.9% 1,000 ML IV STA (20:39)
[2017-05-08] MEDS ORDERED: DiphenhydrAMINE 50 mg/ml Inj IVP STA (20:39)
[2017-05-08 21:27] LABS: ALBUMIN 3.7 g/dL (3.5-5.0); ALT/SGPT 36 U/L (21-72); AST/SGOT 26 U/L (17-59); BLOOD UREA NITROGEN 11 mg/dl (9-20); GFR AFRICAN-AMERICAN > 60; GFR NON-AFRICAN AMERICAN > 60; LIPASE 52 U/L (23-300)
--- NOTE | 2017-05-08 22:03 | ED PDOC ---
HPI: Abdomen Time Seen by Provider: 05/08/17 19:26 Chief Complaint (Nursing): Abdominal Pain Chief Complaint (Provider): Abdominal Pain History Per: Patient History/Exam Limitations: no limitations Onset/Duration Of Symptoms: Days (x3) Additional Complaint(s): Chester Ivey, 31 year old male with a long standing history of Crohns Disease with ileoanal anastomosis presents to the ED with weakness, nausea, vomiting, and dizziness. The patient states 11 days prior to arrival he was diagnosed with small bowel obstruction and was told he needed surgery. The patient reports refusing surgery due to a family issue at home. Under the instruction of his Irrigation Equipment Remover, the patient used a 30 belizean schmitt catheter to decompress his colon. 3 days prior to arrival, he ran out of supplies and felt excessive amounts of stool in his colon, causing him to feel abdominal spasms. The patient states when this occurred, his Crohns flared up which prompted him to require pain medications. He is specifically asking for Dilaudid and Benadryl. 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) - Surgical History Surgical History: Denies: Appendectomy, Cholecystectomy, Coronary Stent - Family History Family History: States: Unknown Family Hx - Social History Current smoker - smoking cessation education provided: Yes Alcohol: None Drugs: Denies - Immunization History Hx Tetanus Toxoid Vaccination: No Hx Influenza Vaccination: No Hx Pneumococcal Vaccination: No - Home Medications Home Medications: Ambulatory Orders Medication Instructions Recorded Methadone [Methadose] 40 mg PO DAILY 05/09/17 - Allergies Allergies/Adverse Reactions: Allergies Allergy/AdvReac Type Severity Reaction Status Date / Time ciprofloxacin Allergy RASH Verified 01/14/17 15:09 iodine Allergy ANAPHYLAXIS Verified 01/14/17 15:09 morphine Allergy RASH Verified 01/14/17 15:09 Review of Systems ROS Statement: Except As Marked, All Systems Reviewed And Found Negative Constitutional: Positive for: Weakness Gastrointestinal: Positive for: Nausea, Vomiting, Abdominal Pain (and abdominal spasms ) Neurological: Positive for: Dizziness Physical Exam - Reviewed Nursing Documentation Reviewed: Yes Vital Signs Reviewed: Yes - Physical Exam Appears: Positive for: Well, Non-toxic, No Acute Distress Head Exam: Positive for: ATRAUMATIC, NORMAL INSPECTION, NORMOCEPHALIC Skin: Positive for: Normal Color, Warm, Dry Eye Exam: Positive for: EOMI, Normal appearance, PERRL ENT: Positive for: Normal ENT Inspection Neck: Positive for: Normal, Painless ROM Cardiovascular/Chest: Positive for: Regular Rate, Rhythm, Chest Non Tender Respiratory: Positive for: Normal Breath Sounds. Negative for: Respiratory Distress Gastrointestinal/Abdominal: Positive for: Soft, Tenderness (to bilateral lower quadrants), Other (multiple abdominal surgical scars). Negative for: Distended Back: Positive for: Normal Inspection Extremity: Positive for: Normal ROM. Negative for: Deformity Neurologic/Psych: Positive for: Alert, Oriented - Laboratory Results Result Diagrams: 05/08/17 21:58 05/08/17 20:50 Medical Decision Making Medical Decision Making: Impression: Chronic strictures and SBO secondary to Crohn's disease Plan: * COMP Metabolic Panel Stat * Lipase Stat * CBC (With Differential) Stat * Benadryl 50 mg IVP Stat * Dilaudid 1 mg IVP Stat * Sodium Chloride 0.9% 1,000 ml IV 500 mls/hr * Reevaluation Scribe Attestation: Documented by Angelica Garza, acting as a scribe for Cooper Bennett MD. Provider Scribe Attestation: All medical record entries made by the Scribe were at my direction and personally dictated by me. I have reviewed the chart and agree that the record accurately reflects my personal performance of the history, physical exam, medical decision making, and the department course for this patient. I have also personally directed, reviewed, and agree with the discharge instructions and disposition. ED OBSERVATION Date of observation admission: 05/08/17 Time of observation admission: 08:00 - Observation admission statement Patient is being placed in observation because:: Pending workup with consult. Scribe Attestation Documented by Loni Mcintosh acting as a scribe for Cooper Bennett MD. Provider Attestation All medical record entries made by the Scribe were at my direction and personally dictated by me. I have reviewed the chart and agree that the record accurately reflects my personal performance of the history, physical exam, medical decision making, and the department course for this patient. I have also personally directed, reviewed, and agree with the discharge instructions and disposition. - Progress Note Progress Note: 05/09/17 0300 Patient self-foleyed to try and decompress his colon but did not have adequate relief. CT shows high grade SBO. Surgery paged. Case discussed with Dr. Olmos. Disposition - Clinical Impression Clinical Impression: SBO (small bowel obstruction) - Patient ED Disposition Is Patient to be Admitted: No - Disposition Disposition Time: 04:00 Condition: STABLE
[2017-05-08] MEDS ORDERED: HYDROmorphone 0.5 mg/0.5 ml ISec ONE (22:04)
[2017-05-08 22:18] LABS: BASO # 0.1 K/uL (0.0-0.2); BASO % 1.1 % (0.0-2.0); EOS # 0.2 K/uL (0.0-0.7); EOS % 2.6 % (0.0-4.0); HEMOGLOBIN 10.8 g/dL (12.0-18.0); LYMPH # 1.8 K/uL (1.0-4.3); LYMPH % 19.1 % (20.0-40.0); MEAN CELL VOLUME 80.7 fl (80.0-94.0); MEAN CORPUSCULAR HEMOGLOBIN 25.1 pg (27.0-31.0); MEAN CORPUSCULAR HGB CONC 31.2 g/dL (33.0-37.0); MEAN PLATELET VOLUME 7.2 fl (7.2-11.7); MONO # 1.1 K/uL (0.0-0.8); MONO % 11.8 % (0.0-10.0); NEUT % 65.4 % (50.0-75.0); RBC 4.31 Mil/uL (4.40-5.90); RED CELL DISTRIBUTION WIDTH 18.7 % (11.5-14.5); WHITE BLOOD COUNT 9.2 K/uL (4.8-10.8)
[2017-05-09] MEDS ORDERED: Iohexol 240 (50 ml) PO ONE (00:49)
[2017-05-09] MEDS ORDERED: Sodium Chloride 0.9% 1,000 ML IV STA ×2 (00:49→04:25)
--- NOTE | 2017-05-09 03:56 | CT ---
EXAM: CT Abdomen and Pelvis with oral Contrast only CLINICAL HISTORY: 31 years old, male; Pain; Abdominal pain; Generalized; Prior surgery; Surgery date: 6+ months; Surgery type: Intestinal; Additional info: HX of chron's disease, abd distension TECHNIQUE: Axial computed tomography images of the abdomen and pelvis with oral contrast. This CT exam was performed using one or more of the following dose reduction techniques: automated exposure control, adjustment of the mA and/or kV according to patient size, and/or use of iterative reconstruction technique. Coronal and sagittal reformatted images were created and reviewed. Examination is markedly limited as the right lateral abdomen is excluded from the submitted images. COMPARISON: CT - ABD PELVIS W/O PO OR IV CONT 01/14/2017 5:47:02 PM FINDINGS: Lower thorax: Left basilar atelectasis. ABDOMEN: Liver: No acute findings within the visualized portion of the liver Gallbladder and bile ducts: No acute finding. No calcified stones. No intra-extrahepatic biliary ductal dilation. Pancreas: Limited evaluation secondary to the lack of intravenous contrast. Spleen: No acute findings. Adrenals: No acute findings. Kidneys and ureters: No obstructing stones. No hydronephrosis. PELVIS: Bladder: No acute findings. Reproductive: No acute findings. ABDOMEN and PELVIS: Stomach and bowel: Oral contrast extends only to the stomach in the first portion of the duodenum. Extensive dilated small bowel are again identified, similar in appearance to previous examination performed 01/14/2017. No distal decompression is detected. The dilatation extends to the level of the rectum. Peritoneum: As above. Lymph nodes: Limited evaluation without intravenous contrast. Vasculature: No aortic aneurysm. Bones: No acute fracture. IMPRESSION: Findings consistent with high grade bowel obstruction, as detailed above.
--- NOTE | 2017-05-09 04:16 | CP.PCM.CON ---
History of Present Illness - History of Present Illness History of Present Illness: Surgery for Dr. Hampton Pt is a 31M w/ Hx of Crohn's, SBO 2/2 anastomosis stricture who is well known to surgical service. Pt has PSH of total colectomy with J-pouch ileoanal anastamosis. He is s/p over 17 surgeries to his abdomen for Crohn's flare-ups and obstructions. He is here because over the past few days he has had worsening abdominal distension and pain. He had surgery done at [place] by Dr Sanders comes referring 3 days of abdominal pain, nausea, vomiting and dizziness. He referred that he was again dx with SBO 11 days prior and told that he needed surgery which he refused.He was advised to use a 30 [place] Pugh catheter to decompress the Colon. He ran out of supplies 3 days and so the colon which is not being decompressed, causing him to have abdominal spasm. Pt denies any F/C/CP/ SOB. He has opted to avoid using any medications to treat his CD stating that they gave him too many negative side effects in the past. CT shows high grade SBO. In previous admissions for SBO rectal tube helped. Labs are unremarkable PSHx: Total Colectomy with IAPA, 16 abdominal sx, anastomotic dilation for stricture, Appy PMH: Anemia; Crohn's disease; SBO FH: unknown family hx SH: No illegal drugs; No smoking of cigarettes; No Alcohol use Allergies: Cipro; Iodine:Morphine Review of Systems - Review of Systems Review of Systems: See HPI Past Patient History - Infectious Disease Hx of Infectious Diseases: C.diff, MRSA - Tetanus Immunizations Tetanus Immunization: Unknown - Past Medical History & Family History Past Medical History?: Yes - Past Social History Alcohol: None Drugs: Denies - CARDIAC Hx Hypertension: No - PULMONARY Hx Emphysema: No Hx Pneumonia: Yes - NEUROLOGICAL Hx Seizures: No - HEENT Hx HEENT Problems: No - RENAL Hx Chronic Kidney Disease: No - ENDOCRINE/METABOLIC Hx Endocrine Disorders: No - HEMATOLOGICAL/ONCOLOGICAL Hx Anemia: Yes - INTEGUMENTARY Hx Dermatological Problems: No - MUSCULOSKELETAL/RHEUMATOLOGICAL Hx Rheumatoid Arthritis: No - GASTROINTESTINAL Hx Crohn's Disease: Yes Hx Diverticulitis: No - GENITOURINARY/GYNECOLOGICAL Hx Genitourinary Disorders: No - PSYCHIATRIC Hx Depression: No - SURGICAL HISTORY Hx Appendectomy: No Hx Cholecystectomy: No Hx Coronary Stent: No - ANESTHESIA Hx Anesthesia: Yes Hx Anesthesia Reactions: No Hx Malignant Hyperthermia: No Meds Allergies/Adverse Reactions: Allergies Allergy/AdvReac Type Severity Reaction Status Date / Time ciprofloxacin Allergy RASH Verified 01/14/17 15:09 iodine Allergy ANAPHYLAXIS Verified 01/14/17 15:09 morphine Allergy RASH Verified 01/14/17 15:09 - Medications Medications: Current Medications Hydromorphone HCl (Dilaudid) 2 mg IVP STAT STA Stop: 05/09/17 04:08 Physical Exam - Constitutional Appears: No Acute Distress - Head Exam Head Exam: ATRAUMATIC, NORMAL INSPECTION, NORMOCEPHALIC - Eye Exam Eye Exam: EOMI, Normal appearance, PERRL Pupil Exam: NORMAL ACCOMODATION, PERRL - ENT Exam ENT Exam: Mucous Membranes Moist, Normal Exam - Neck Exam Neck exam: Positive for: Normal Inspection - Respiratory Exam Respiratory Exam: Clear to Auscultation Bilateral, NORMAL BREATHING PATTERN - Cardiovascular Exam Cardiovascular Exam: REGULAR RHYTHM - GI/Abdominal Exam GI & Abdominal Exam: Distended, Guarding, Tenderness. absent: Pulsatile Mass, Rebound, Rigid Additional comments: Multiple scars. - Extremities Exam Extremities exam: Positive for: full ROM, normal inspection - Back Exam Back exam: NORMAL INSPECTION - Neurological Exam Neurological exam: Alert, CN II-XII Intact, Normal Gait, Oriented x3, Reflexes Normal - Psychiatric Exam Psychiatric exam: Normal Affect, Normal Mood - Skin Skin Exam: Dry, Intact, Normal Color, Warm Results - Vital Signs Recent Vital Signs: Last Vital Signs Temp 97.7 F 05/08/17 23:18 Pulse 72 05/08/17 23:18 Resp 17 05/08/17 23:18 BP 97/64 L 05/08/17 23:18 Pulse Ox 99 05/08/17 23:18 - Labs Result Diagrams: 05/08/17 21:58 05/08/17 20:50 Labs: Laboratory Results - last 24 hr 05/08/17 05/08/17 20:50 21:58 WBC 9.2 D RBC 4.31 L Hgb 10.8 L Hct 34.8 L MCV 80.7 D MCH 25.1 L MCHC 31.2 L RDW 18.7 H Plt Count 441 H MPV 7.2 Neut % (Auto) 65.4 Lymph % (Auto) 19.1 L [place] % (Auto) 11.8 H Eos % (Auto) 2.6 Baso % (Auto) 1.1 Neut # 6.0 Lymph # 1.8 [place] # 1.1 H Eos # 0.2 Baso # 0.1 Sodium 142 Potassium 4.3 Chloride 108 H Carbon Dioxide 24 Anion Gap 14 BUN 11 Creatinine 0.8 Est GFR ( Amer) > 60 Est GFR (Non-Af Amer) > 60 Random Glucose 71 L Calcium 9.0 Total Bilirubin 0.2 AST 26 ALT 36 Alkaline Phosphatase 76 Total Protein 7.2 Albumin 3.7 Globulin 3.5 Albumin/Globulin Ratio 1.0 Lipase 52 Assessment & Plan - Assessment and Plan (Free Text) Assessment: 31M with Hx of Crohns and multiple surgeries w SBO CT: High grade SBO Plan: Recommend decompression via rectal tube Recommend GI consults IVF Pain meds NPO Medical managemement We will follow closely Will D/W Dr. Hampton
[2017-05-09] MEDS ORDERED: DiphenhydrAMINE 50 mg/ml Inj IVP STA (04:34)
--- NOTE | 2017-05-09 04:47 | CP.PCM.HP ---
History of Present Illness - History of Present Illness History of Present Illness: PMD: Simone Cemandie Cervantes Chief complaint: Abdominal pain HPI: HPI: 31 years old male with hx of Crohn's Disease s/p toxic megacolon with total colectomy with ileoanal anastomosis, multiple subsequent operations 17 total , done at [place] by Dr Sanders comes referring 3 days of abdominal pain, nausea, vomiting and dizziness. He referred that he was again dx with SBO 11 days prior and told that he needed surgery which he refused.He was advised to use a 30 [place] Pugh catheter to decompress the Colon. He ran out of supplies 3 days and so the colon which is not being decompressed, causing him to have abdominal spas,s. PMH: Anemia; Crohn's disease; SBO PSH: Total colectomy with ileoanal anastomosis, Appendectomy; FH: unknown family hx SH: No illegal drugs; No smoking of cigarettes; No Alcohol use Allergies: Cipro; Iodine:Morphine Present on Admission - Present on Admission Any Indicators Present on Admission: No History of DVT/PE: No History of Uncontrolled Diabetes: No Urinary Catheter: No Decubitus Ulcer Present: No Review of Systems - Constitutional Constitutional: absent: Chills, Fatigue, Fever, Headache - EENT Eyes: absent: Diplopia, Floaters, Requires Corrective Lenses Ears: absent: Ear Discharge, Ear Pain, Tinnitus, Disequilibrium Nose/Mouth/Throat: absent: Epistaxis, Nasal Congestion, Nasal Discharge, Sinus Pain, Sinus Pressure - Cardiovascular Cardiovascular: absent: Chest Pain, Dyspnea, Orthopnea - Respiratory Respiratory: absent: Dyspnea, Wheezing, Stridor - Gastrointestinal Gastrointestinal: Cramping, Nausea, Vomiting - Genitourinary Genitourinary: absent: Dysuria, Flank Pain, Hematuria - Musculoskeletal Musculoskeletal: absent: Arthralgias, Muscle Weakness, Numbness - Integumentary Integumentary: absent: Pruritus, Rash, Skin Ulcer, Sores, Striae, Swelling - Neurological Neurological: absent: Confusion, Numbness, Focal Weakness, Headaches, Paresthesias - Psychiatric Psychiatric: absent: Anxiety, Depression, Panic Attacks - Endocrine Endocrine: absent: Fatigue, Polydipsia, Polyphagia, Polyuria - Hematologic/Lymphatic Hematologic: absent: Easy Bleeding, Easy Bruising Past Patient History - Infectious Disease Hx of Infectious Diseases: C.diff, MRSA - Tetanus Immunizations Tetanus Immunization: Unknown - Past Medical History & Family History Past Medical History?: Yes - Past Social History Alcohol: None Drugs: Denies - CARDIAC Hx Hypertension: No - PULMONARY Hx Emphysema: No Hx Pneumonia: Yes - NEUROLOGICAL Hx Seizures: No - HEENT Hx HEENT Problems: No - RENAL Hx Chronic Kidney Disease: No - ENDOCRINE/METABOLIC Hx Endocrine Disorders: No - HEMATOLOGICAL/ONCOLOGICAL Hx Anemia: Yes - INTEGUMENTARY Hx Dermatological Problems: No - MUSCULOSKELETAL/RHEUMATOLOGICAL Hx Rheumatoid Arthritis: No - GASTROINTESTINAL Hx Crohn's Disease: Yes Hx Diverticulitis: No - GENITOURINARY/GYNECOLOGICAL Hx Genitourinary Disorders: No - PSYCHIATRIC Hx Depression: No - SURGICAL HISTORY Hx Appendectomy: No Hx Cholecystectomy: No Hx Coronary Stent: No - ANESTHESIA Hx Anesthesia: Yes Hx Anesthesia Reactions: No Hx Malignant Hyperthermia: No Meds Allergies/Adverse Reactions: Allergies Allergy/AdvReac Type Severity Reaction Status Date / Time ciprofloxacin Allergy RASH Verified 01/14/17 15:09 iodine Allergy ANAPHYLAXIS Verified 01/14/17 15:09 morphine Allergy RASH Verified 01/14/17 15:09 Physical Exam - Constitutional Appears: No Acute Distress - Head Exam Head Exam: ATRAUMATIC, NORMAL INSPECTION, NORMOCEPHALIC - Eye Exam Eye Exam: EOMI, Normal appearance Pupil Exam: Irregular, NORMAL ACCOMODATION, PERRL - ENT Exam ENT Exam: Mucous Membranes Moist, Normal Exam. absent: Normal External Ear Exam , Normal Oropharynx - Neck Exam Neck exam: Positive for: Full Rom, Normal Inspection. Negative for: Lymphadenopathy, Tenderness - Respiratory Exam Respiratory Exam: absent: Rales, Rhonchi, Wheezes - Cardiovascular Exam Cardiovascular Exam: REGULAR RHYTHM, RRR, +S1, +S2 - GI/Abdominal Exam GI & Abdominal Exam: Normal Bowel Sounds, Soft, Tenderness - Rectal Exam Rectal Exam: Deferred - Extremities Exam Extremities exam: Negative for: calf tenderness, joint swelling - Back Exam Back exam: NORMAL INSPECTION. absent: CVA tenderness (L), CVA tenderness (R) - Neurological Exam Neurological exam: Alert, CN II-XII Intact, Oriented x3, Reflexes Normal - Psychiatric Exam Psychiatric exam: Normal Affect, Normal Mood - Skin Skin Exam: Dry, Intact, Normal Color, Warm Results - Vital Signs Recent Vital Signs: Last Vital Signs Temp 97.7 F 05/08/17 23:18 Pulse 72 05/08/17 23:18 Resp 17 07/11/17 23:18 BP 97/64 L 05/08/17 23:18 Pulse Ox 99 05/08/17 23:18 - Labs Result Diagrams: 05/08/17 21:58 05/08/17 20:50 Labs: Laboratory Results - last 24 hr 05/08/17 05/08/17 20:50 21:58 WBC 9.2 D RBC 4.31 L Hgb 10.8 L Hct 34.8 L MCV 80.7 D MCH 25.1 L MCHC 31.2 L RDW 18.7 H Plt Count 441 H MPV 7.2 Neut % (Auto) 65.4 Lymph % (Auto) 19.1 L [place] % (Auto) 11.8 H Eos % (Auto) 2.6 Baso % (Auto) 1.1 Neut # 6.0 Lymph # 1.8 [place] # 1.1 H Eos # 0.2 Baso # 0.1 Sodium 142 Potassium 4.3 Chloride 108 H Carbon Dioxide 24 Anion Gap 14 BUN 11 Creatinine 0.8 Est GFR ( Amer) > 60 Est GFR (Non-Af Amer) > 60 Random Glucose 71 L Calcium 9.0 Total Bilirubin 0.2 AST 26 ALT 36 Alkaline Phosphatase 76 Total Protein 7.2 Albumin 3.7 Globulin 3.5 Albumin/Globulin Ratio 1.0 Lipase 52 - Imaging and Cardiology CT scan - abdomen Status: Report reviewed by me Additional comment: FINDINGS: Lower thorax: Left basilar atelectasis. ABDOMEN: Liver: No acute findings within the visualized portion of the liver Gallbladder and bile ducts: No acute finding. No calcified stones. No intra- extrahepatic biliary ductal dilation. Pancreas: Limited evaluation secondary to the lack of intravenous contrast. Spleen: No acute findings. Adrenals: No acute findings. Kidneys and ureters: No obstructing stones. No hydronephrosis. PELVIS: Bladder: No acute findings. Reproductive: No acute findings. ABDOMEN and PELVIS: Stomach and bowel: Oral contrast extends only to the stomach in the first portion of the duodenum. Extensive dilated small bowel are again identified, similar in appearance to previous examination performed 01/14/2017. No distal decompression is detected. The dilatation extends to the level of the rectum. Peritoneum: As above. Lymph nodes: Limited evaluation without intravenous contrast. Vasculature: No aortic aneurysm. Bones: No acute fracture. IMPRESSION: Findings consistent with high grade bowel obstruction, as detailed above. Assessment & Plan - Assessment and Plan (Free Text) Plan: 31 years old male with hx of Crohn's Disease s/p toxic megacolon with total colectomy with ileoanal anastomosis, multiple subsequent operations, done at [place] by Dr Sanders comes referring 3 days of abdominal pain, nausea, vomiting and dizziness. dx with SBO 11 days but he refused surgery. #.Small bowel Obstruction - Consult Surgery Dr Hampton - NPO - IV Fluid NS - Pain management with Dilauded -Follow Obstructive series #. Crohn,s Disease - Consult GI Dr Lentz #. Anemia of blood loss - Follow Hb #. DVT Prophylaxis with SCD #. Stress ulcer prophylaxis with Pepcid #. Code Status: Full - Date & Time Date: 05/09/17 Time: 04:46
[2017-05-09] MEDS ORDERED: HYDROmorphone 0.5 mg/0.5 ml ISec IVP PRN (04:50)
[2017-05-09] MEDS ORDERED: Sodium Chloride 0.9% 1,000 ML IV SCH (05:00)
[2017-05-09 05:58] VITALS: BP 83/54; PULSE 66; TEMP 97.2; O2SAT 96
[2017-05-09 06:48] VITALS: RESP 16
[2017-05-09] MEDS: HYDROmorphone 0.5 mg/0.5 ml ISec IVP PRN ×2 (08:33→12:11)
[2017-05-09] MEDS ORDERED: DiphenhydrAMINE 50 mg/ml Inj IVP PRN (08:53)
--- NOTE | 2017-05-09 13:14 | CP.PCM.DIS ---
Provider - Provider Date of Admission: 05/08/17 20:00 Attending physician: Stas Olmos Consults: Surgery : Dr Hampton GI Mary Carmen- pt left AMA before GI could see him Time Spent in preparation of Discharge (in minutes): 20 Diagnosis - Discharge Diagnosis (1) SBO (small bowel obstruction) Status: Acute (2) Crohns disease Status: Chronic (3) Anemia, chronic disease Status: Chronic Hospital Course - Lab Results Lab Results: Most Recent Lab Values WBC 9.2 K/uL (4.8-10.8) D 05/08/17 21:58 RBC 4.31 Mil/uL (4.40-5.90) L 05/08/17 21:58 Hgb 10.8 g/dL (12.0-18.0) L 05/08/17 21:58 Hct 34.8 % (35.0-51.0) L 05/08/17 21:58 MCV 80.7 fl (80.0-94.0) D 05/08/17 21:58 MCH 25.1 pg (27.0-31.0) L 05/08/17 21:58 MCHC 31.2 g/dL (33.0-37.0) L 05/08/17 21:58 RDW 18.7 % (11.5-14.5) H 05/08/17 21:58 Plt Count 441 K/uL (130-400) H 05/08/17 21:58 MPV 7.2 fl (7.2-11.7) 05/08/17 21:58 Neut % (Auto) 65.4 % (50.0-75.0) 05/08/17 21:58 Lymph % (Auto) 19.1 % (20.0-40.0) L 05/08/17 21:58 [place] % (Auto) 11.8 % (0.0-10.0) H 05/08/17 21:58 Eos % (Auto) 2.6 % (0.0-4.0) 05/08/17 21:58 Baso % (Auto) 1.1 % (0.0-2.0) 05/08/17 21:58 Neut # 6.0 K/uL (1.8-7.0) 05/08/17 21:58 Lymph # 1.8 K/uL (1.0-4.3) 05/08/17 21:58 [place] # 1.1 K/uL (0.0-0.8) H 05/08/17 21:58 Eos # 0.2 K/uL (0.0-0.7) 05/08/17 21:58 Baso # 0.1 K/uL (0.0-0.2) 05/08/17 21:58 Sodium 142 mmol/l (132-148) 05/08/17 20:50 Potassium 4.3 MMOL/L (3.6-5.0) 05/08/17 20:50 Chloride 108 mmol/L (98-107) H 05/08/17 20:50 Carbon Dioxide 24 mmol/L (22-30) 05/08/17 20:50 Anion Gap 14 (10-20) 05/08/17 20:50 BUN 11 mg/dl (9-20) 05/08/17 20:50 Creatinine 0.8 mg/dL (0.8-1.5) 05/08/17 20:50 Est GFR ( Amer) > 60 05/08/17 20:50 Est GFR (Non-Af Amer) > 60 05/08/17 20:50 Random Glucose 71 mg/dL (75-110) L 05/08/17 20:50 Calcium 9.0 mg/dL (8.4-10.2) 05/08/17 20:50 Total Bilirubin 0.2 mg/dl (0.2-1.3) 05/08/17 20:50 AST 26 U/L (17-59) 05/08/17 20:50 ALT 36 U/L (21-72) 05/08/17 20:50 Alkaline Phosphatase 76 U/L (38-126) 05/08/17 20:50 Total Protein 7.2 G/DL (6.3-8.2) 05/08/17 20:50 Albumin 3.7 g/dL (3.5-5.0) 05/08/17 20:50 Globulin 3.5 gm/dL (2.2-3.9) 05/08/17 20:50 Albumin/Globulin Ratio 1.0 (1.0-2.1) 05/08/17 20:50 Lipase 52 U/L (23-300) 05/08/17 20:50 - Hospital Course Hospital Course: 31 years old male with hx of Crohn's Disease s/p toxic megacolon with total colectomy with ileoanal anastomosis, multiple subsequent operations, done at [place] by Dr Sanders comes referring 3 days of abdominal pain, nausea, vomiting and dizziness. dx with SBO 11 days but he refused surgery. Pt kept NPO, started on IVF hydration and Pain mgt. Surgery and GI consulted. Rectal tube placed by Surgery. Pt's symptoms improved , he took off his rectal tube and signed AMA because he said he had a 6y/o son who needed his care today. He left AMA despite explanation of risk , benefits. He states that he has an appt with his GI at [place] to dilate his colon this week and will ff up with them. #.Small bowel Obstruction - Consulted Surgery Dr Hampton - NPO - IV Fluid hydration - Pain management with Dilauded -Follow Obstructive series - Rectal tube placed -pt felt better and signed AMA #. Crohn,s Disease - Consult GI Dr Lentz- pt left before he could even be seen by consultants #. Anemia , of chronic dis #. DVT Prophylaxis with SCD #. Stress ulcer prophylaxis with Pepcid Discharge Exam - Head Exam Head Exam: ATRAUMATIC, NORMAL INSPECTION, NORMOCEPHALIC - Eye Exam Eye Exam: EOMI, Normal appearance, PERRL Pupil Exam: NORMAL ACCOMODATION - ENT Exam ENT Exam: Mucous Membranes Dry, Normal External Ear Exam - Neck Exam Neck exam: Full Rom - Respiratory Exam Respiratory Exam: NORMAL BREATHING PATTERN. absent: Rales, Respiratory Distress - Cardiovascular Exam Cardiovascular Exam: REGULAR RHYTHM, +S1, +S2 - GI/Abdominal Exam GI & Abdominal Exam: Normal Bowel Sounds, Soft, Tenderness (minimal tenderneess) - Extremities Exam Extremities exam: full ROM, normal capillary refill, normal inspection, pedal pulses present - Back Exam Back exam: FULL ROM. absent: CVA tenderness (L), CVA tenderness (R), paraspinal tenderness, vertebral tenderness - Neurological Exam Neurological exam: Alert, CN II-XII Intact, Normal Gait, Oriented x3, Reflexes Normal - Psychiatric Exam Psychiatric exam: Normal Affect, Normal Mood - Skin Skin Exam: Dry, Normal Color, Warm Discharge Plan - Follow Up Plan Condition: IMPROVED Disposition: AGAINST MEDICAL ADVICE Additional Instructions: ff [facility] with [facility]
== END 2017-05-09 13:52 | disposition left against medical advice (07) ==
LOC: H.ER 17:30 → H.EROBSV 20:00 → H.ERHOLD 05-09 04:09 → H.MEDSURG1 05-09 06:47
PROVIDERS: ADMIT Internal Medicine; ATTEND Internal Medicine
DX: K56.60 Unspecified intestinal obstruction (principal); D63.8 Anemia in other chronic diseases classified elsewhere; F17.200 Nicotine dependence, unspecified, uncomplicated; I25.10 Atherosclerotic heart disease of native coronary artery without angina pectoris; Z86.14 Personal history of Methicillin resistant Staphylococcus aureus infection; K50.012 Crohn's disease of small intestine with intestinal obstruction; Z87.01 Personal history of pneumonia (recurrent); R14.0 Abdominal distension (gaseous)
CPT/HCPCS: 74176; 80053; 83690; 85025; 96361; 96374; 96375; 96376; 99284; G0378; J1170; J1200; J2405; J7040; Q9966

== ENCOUNTER 2018-04-28 13:42 | Emergency (ER) | payer MEDICARE, OTHER ==
[2018-04-28 13:46] VITALS: BP 118/78; PULSE 115; TEMP 98; O2SAT 100; BMI 20.5
[2018-04-28] MEDS ORDERED: HYDROmorphone 0.5 mg/0.5 ml ISec IVP STA ×2 (14:50→17:27)
[2018-04-28] MEDS ORDERED: Sodium Chloride 0.9% 1,000 ML IV STA (14:50)
--- NOTE | 2018-04-28 15:03 | ED PDOC ---
HPI: Abdomen Time Seen by Provider: 04/28/18 14:10 Chief Complaint (Nursing): Abdominal Pain Chief Complaint (Provider): Abdominal Pain History Per: Patient History/Exam Limitations: no limitations Onset/Duration Of Symptoms: Days (x3) Current Symptoms Are (Timing): Still Present Location Of Pain/Discomfort: Diffuse Quality Of Discomfort: "Pain" Associated Symptoms: Vomiting Additional Complaint(s): 32 y/o male with a PMHx of ileoanal anastomosis and Crohn's disease presents to the ED complaining of abdominal pain associated with vomiting and difficulty having bowel movements. However, patient states he has had liquid stool. Patient states he feels like he's having a Crohn's flare up. Patient reports he inserted a rectal tube at home. Patient follows up with GI in [facility] and is now requesting dilantin. Patient is on methadone daily for chronic abdominal pain. Denies fever. PMD: Dr. 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) - Surgical History Surgical History: No Surg Hx Denies: Appendectomy, Cholecystectomy, Coronary Stent - Family History Family History: States: Unknown Family Hx - Immunization History Hx Tetanus Toxoid Vaccination: No Hx Influenza Vaccination: No Hx Pneumococcal Vaccination: No - Home Medications Home Medications: Ambulatory Orders Medication Instructions Recorded Methadone [Methadose] 40 mg PO DAILY 05/09/17 - Allergies Allergies/Adverse Reactions: Allergies Allergy/AdvReac Type Severity Reaction Status Date / Time ciprofloxacin Allergy RASH Verified 01/14/17 15:09 iodine Allergy ANAPHYLAXIS Verified 01/14/17 15:09 morphine Allergy RASH Verified 01/14/17 15:09 Review of Systems ROS Statement: Except As Marked, All Systems Reviewed And Found Negative Constitutional: Negative for: Fever Gastrointestinal: Positive for: Vomiting, Abdominal Pain, Other (difficulty with having bowel movements) Physical Exam - Reviewed Nursing Documentation Reviewed: Yes Vital Signs Reviewed: Yes - Physical Exam Appears: Positive for: No Acute Distress Head Exam: Positive for: ATRAUMATIC, NORMOCEPHALIC Skin: Positive for: Normal Color, Warm, Dry Eye Exam: Positive for: Normal appearance, EOMI, PERRL Neck: Positive for: Normal, Painless ROM Cardiovascular/Chest: Positive for: Regular Rate, Rhythm Respiratory: Positive for: Normal Breath Sounds. Negative for: Respiratory Distress Gastrointestinal/Abdominal: Positive for: Normal Exam, Soft, Tenderness ( generalized abdominal tenderness). Negative for: Guarding, Rebound Back: Positive for: Normal Inspection Extremity: Positive for: Normal ROM. Negative for: Pedal Edema, Deformity Neurologic/Psych: Positive for: Alert, Oriented. Negative for: Motor/Sensory Deficits - Laboratory Results Result Diagrams: 04/28/18 16:00 04/28/18 16:00 - ECG O2 Sat by Pulse Oximetry: 100 (RA) Pulse Ox Interpretation: Normal Medical Decision Making Medical Decision Making: Time: 1452 Impression: Acute on Chronic Abdominal Pain Plan: -- CT Abd/Pelvis w/o Contrast -- CMP -- Urine Drug Screen -- Lipase -- ED Urine Dipstick -- CBC with differentials -- PTT -- Prothrombin Time -- Dilantin 1 mg IVP -- Sodium Chloride IV 1000 mls/hr -- Zofran Inj 4 mg IV -- Urinalysis Time: 1500 -- Patient endorsed to Dr. Rosen, pending CT and lab work. Scribe Attestation: Documented by Fabrizio Calvert acting as a scribe for Dr. Nori Saul MD. Provider Scribe Attestation: All medical record entries made by the Scribe were at my direction and personally dictated by me. I have reviewed the chart and agree that the record accurately reflects my personal performance of the history, physical exam, medical decision making, and the department course for this patient. I have also personally directed, reviewed, and agree with the discharge instructions and disposition. Disposition - Clinical Impression Clinical Impression: Abdominal pain, Hypokalemia - Disposition Referrals: Strell,Simone Cem, MD [Family Provider] - 04/29/18 Disposition: Transfer of Care Disposition Time: 15:00 Condition: STABLE Additional Instructions: Return if not better in 3 days. Instructions: Chronic Pain (DC), Hypokalemia (DC) Patient Signed Over To: Eber Rosen
--- NOTE | 2018-04-28 15:19 | ED PDOC ---
- Laboratory Results Result Diagrams: 04/28/18 16:00 04/28/18 16:00 Interpretation Of Abn Labs: 3.5 k - ECG O2 Sat by Pulse Oximetry: 100 (RA) Pulse Ox Interpretation: Normal - Progress ED Course And Treament: 1729: Stable. AAOx3. Ct with no findings. Pt. states pain is back, will give pain med and benadryl. 1740: Pt. states he will fu with his pcp Dr. Cervantes and GI. Medical Decision Making Medical Decision Making: Time: 1500 -- Patient endorsed to me by Dr. Saul, pending CT and lab work. Patient with a PMHx of Crohn's Disease and ileoanal anastomosis presents to the ED with complaints of abdominal pain associated with nausea and vomiting, onset three days ago. Time: 1604 CT ABD/PELVIS RESULTS FINDINGS: LOWER THORAX: Unremarkable. LIVER: Unremarkable. No gross lesion or ductal dilatation. GALLBLADDER AND BILE DUCTS: Unremarkable. PANCREAS: Unremarkable. No gross lesion or ductal dilatation. SPLEEN: Unremarkable. ADRENALS: Unremarkable. No mass. KIDNEYS AND URETERS: Unremarkable. No hydronephrosis. No solid mass. VASCULATURE: Unremarkable. No aortic aneurysm. BOWEL: No change an extensive dilatation of the small and large bowel to the level of the rectum. Evidence of previous bowel surgery.. No gross mural thickening. APPENDIX: Unremarkable. Normal appendix. PERITONEUM: Unremarkable. No free fluid. No free air. LYMPH NODES: Unremarkable. No enlarged lymph nodes. BLADDER: Unremarkable. REPRODUCTIVE: Unremarkable. BONES: No acute fracture. OTHER FINDINGS: None. IMPRESSION: No change.. Scribe Attestation: Documented by Fabrizio Calvert acting as a scribe for Dr. Eber Rosen MD. Provider Scribe Attestation: All medical record entries made by the Scribe were at my direction and personally dictated by me. I have reviewed the chart and agree that the record accurately reflects my personal performance of the history, physical exam, medical decision making, and the department course for this patient. I have also personally directed, reviewed, and agree with the discharge instructions and disposition. Disposition - Clinical Impression Clinical Impression: Abdominal pain, Hypokalemia - POA Present On Arrival: None - Disposition Referrals: Simone Cervantes MD [Family Provider] - 04/29/18 Disposition: Routine/Home Disposition Time: 17:48 Condition: STABLE Additional Instructions: Return if not better in 3 days. Instructions: Chronic Pain (DC), Hypokalemia (DC)
[2018-04-28] MEDS ORDERED: HYDROmorphone 0.5 mg/0.5 ml ISec ONE ×2 (15:37→17:42)
[2018-04-28] MEDS ORDERED: DiphenhydrAMINE 50 mg/ml Inj IV STA ×2 (15:59→17:27)
--- NOTE | 2018-04-28 16:05 | CT ---
PROCEDURE: CT Abdomen and Pelvis without intravenous contrast HISTORY: Abd pain, vomiting COMPARISON: 05/09/17. TECHNIQUE: Technique. Contrast dose: Radiation dose: Total exam DLP = mGy-cm. This CT exam was performed using one or more of the following dose reduction techniques: Automated exposure control, adjustment of the mA and/or kV according to patient size, and/or use of iterative reconstruction technique. FINDINGS: LOWER THORAX: Unremarkable. LIVER: Unremarkable. No gross lesion or ductal dilatation. GALLBLADDER AND BILE DUCTS: Unremarkable. PANCREAS: Unremarkable. No gross lesion or ductal dilatation. SPLEEN: Unremarkable. ADRENALS: Unremarkable. No mass. KIDNEYS AND URETERS: Unremarkable. No hydronephrosis. No solid mass. VASCULATURE: Unremarkable. No aortic aneurysm. BOWEL: No change an extensive dilatation of the small and large bowel to the level of the rectum. Evidence of previous bowel surgery.. No gross mural thickening. APPENDIX: Unremarkable. Normal appendix. PERITONEUM: Unremarkable. No free fluid. No free air. LYMPH NODES: Unremarkable. No enlarged lymph nodes. BLADDER: Unremarkable. REPRODUCTIVE: Unremarkable. BONES: No acute fracture. OTHER FINDINGS: None. IMPRESSION: No change..
[2018-04-28] MEDS ORDERED: DiphenhydrAMINE 50 mg/ml Inj ONE ×2 (16:06→17:41)
[2018-04-28 16:07] LABS: BASO # 0.1 K/uL (0.0-0.2); BASO % 1.3 % (0.0-2.0); EOS # 0.3 K/uL (0.0-0.7); EOS % 4.6 % (0.0-4.0); HEMOGLOBIN 12.1 g/dL (12.0-18.0); LYMPH # 1.8 K/uL (1.0-4.3); LYMPH % 24.9 % (20.0-40.0); MEAN CELL VOLUME 79.9 fl (80.0-94.0); MEAN CORPUSCULAR HEMOGLOBIN 25.6 pg (27.0-31.0); MEAN CORPUSCULAR HGB CONC 32.1 g/dL (33.0-37.0); MEAN PLATELET VOLUME 7.1 fl (7.2-11.7); MONO # 1.2 K/uL (0.0-0.8); MONO % 16.6 % (0.0-10.0); NEUT # 3.7 K/uL (1.8-7.0); NEUT % 52.6 % (50.0-75.0); NRBC % 0.1 % (0.0-0.0); RBC 4.72 Mil/uL (4.40-5.90)
[2018-04-28 16:14] LABS: ALB/GLOB RATIO 0.9 (1.0-2.1); ALBUMIN 3.4 g/dL (3.5-5.0); ALT/SGPT 23 U/L (21-72); AST/SGOT 22 U/L (17-59); BLOOD UREA NITROGEN 11 mg/dl (9-20); CALCIUM 8.9 mg/dL (8.4-10.2); GFR AFRICAN-AMERICAN > 60; GFR NON-AFRICAN AMERICAN > 60; LIPASE 25 U/L (23-300)
[2018-04-28 16:48] LABS: INR 1.1 (0.9-1.2); PARTIAL THROMBOPLASTIN TIME 34.5 Seconds (25.6-37.1); PROTHROMBIN TIME 12.7 Seconds (9.8-13.1)
[2018-04-28] MEDS ORDERED: Potassium Chloride 20 mEq ER Tab PO STA (17:27)
[2018-04-28] MEDS ORDERED: Potassium Chloride 20 mEq ER Tab PO ONE (17:52)
== END 2018-04-28 20:08 | disposition home or self-care (01) ==
LOC: H.ER 13:42
DX: R10.9 Unspecified abdominal pain (principal); E87.6 Hypokalemia; K50.90 Crohn's disease, unspecified, without complications; G89.29 Other chronic pain; I25.10 Atherosclerotic heart disease of native coronary artery without angina pectoris
CPT/HCPCS: 74176; 80053; 83690; 85025; 85610; 85730; 96361; 96374; 96375; 96376; 99284; J1170; J1200; J2405; J7030

== ENCOUNTER 2018-11-08 04:25 | Emergency (ER) | payer MEDICARE, OTHER ==
[2018-11-08 04:25] VITALS: BMI 20.5
--- NOTE | 2018-11-08 04:50 | ED PDOC ---
HPI: General Adult Time Seen by Provider: 11/08/18 04:30 Chief Complaint (Nursing): Headache Chief Complaint (Provider): right facial pain History Per: Patient History/Exam Limitations: no limitations Onset/Duration Of Symptoms: Hrs (1) Current Symptoms Are (Timing): Still Present Additional Complaint(s): 33 y/o male history of Crohn's disease brought in by EMS for evaluation of "stabbing" right facial pain x 1 hour. Patient states symptoms woke him from his sleep; states mostly at right eye, right cheek, and right jaw; and radiates all the way to right side of skull. Patient states he did not take medication for pain. Denies dizziness, nausea/vomiting, extremity numbness/weakness, ear pain, dental pain, nasal congestion. 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) - Surgical History Surgical History: Denies: Appendectomy, Cholecystectomy, Coronary Stent - Family History Family History: States: Unknown Family Hx - Immunization History Hx Tetanus Toxoid Vaccination: No Hx Influenza Vaccination: No Hx Pneumococcal Vaccination: No - Home Medications Home Medications: Ambulatory Orders Medication Instructions Recorded Methadone [Methadose] 40 mg PO DAILY 05/09/17 - Allergies Allergies/Adverse Reactions: Allergies Allergy/AdvReac Type Severity Reaction Status Date / Time ciprofloxacin Allergy RASH Verified 01/14/17 15:09 iodine Allergy ANAPHYLAXIS Verified 01/14/17 15:09 morphine Allergy RASH Verified 01/14/17 15:09 Review of Systems ROS Statement: Except As Marked, All Systems Reviewed And Found Negative Neurological: Positive for: Headache (right facial pain) Physical Exam - Reviewed Nursing Documentation Reviewed: Yes Vital Signs Reviewed: Yes - Physical Exam Appears: Positive for: Well, Non-toxic, Uncomfortable Head Exam: Positive for: ATRAUMATIC, NORMAL INSPECTION, NORMOCEPHALIC Skin: Positive for: Normal Color Eye Exam: Positive for: Normal appearance, EOMI, PERRL ENT: Positive for: Normal ENT Inspection Cardiovascular/Chest: Positive for: Regular Rate, Rhythm Respiratory: Positive for: Normal Breath Sounds Gastrointestinal/Abdominal: Positive for: Normal Exam Back: Positive for: Normal Inspection Extremity: Positive for: Normal ROM Neurologic/Psych: Positive for: Alert, Oriented (x3). Negative for: Motor/Sensory Deficits - Laboratory Results Result Diagrams: 11/08/18 05:01 11/08/18 05:01 - ECG O2 Sat by Pulse Oximetry: 98 - Progress ED Course And Treament: -cbc -cmp -sed rate -IV toradol -IV ativan -CT head CT SCAN OF THE BRAIN WITHOUT IV CONTRAST CLINICAL INDICATION: Right-sided facial pain. TECHNIQUE: Axial and reformatted sagittal and coronal images of the brain obtained without IV contrast administration. Normal size of the ventricles and extra-axial spaces for the patient's age. Normal white matter tracts of the supratentorial brain. Normal basal ganglia and thalami. Normal brainstem. Normal cerebellum. There is no demonstrated extra-axial, intraparenchymal, or intraventricular hemorrhage. There are no findings of an acute ischemic infarction. Normal calvarium. There is no demonstrated fracture. Normal soft tissue structures. Mucosal inflammatory changes in the left ethmoid air cells. Secretions in the left ethmoid air cells. Normal remaining visualized paranasal sinuses. IMPRESSION: Normal unenhanced CT scan of the brain. Mucosal inflammatory changes in the left ethmoid air cells. Secretions in the left ethmoid air cells. On re-eval, patient reports pain improving but still notes intermittent sharp episodes PO Dilaudid ordered Patient now notes greater improvement of pain Patient requires no further intervention in the ED and is stable for discharge at this time. Patient was educated on findings, discharged with instructions to follow up with pain management, neurology Return precautions given Disposition - Clinical Impression Clinical Impression: Right facial pain - Patient ED Disposition Is Patient to be Admitted: No Counseled Patient/Family Regarding: Studies Performed, Diagnosis, Need For Followup - Disposition Referrals: Byron Feliciano MD [Staff Provider] - Disposition: Routine/Home Disposition Time: 06:00 Condition: IMPROVED Instructions: Trigeminal Neuralgia Forms: [employer] (Montenegrin)
[2018-11-08 05:21] LABS: BASO # 0.1 K/uL (0.0-0.2); BASO % 1.3 % (0.0-2.0); EOS # 0.6 K/uL (0.0-0.7); EOS % 6.5 % (0.0-4.0); HEMOGLOBIN 12.3 g/dL (12.0-18.0); LYMPH # 1.1 K/uL (1.0-4.3); MEAN CELL VOLUME 78.1 fl (80.0-94.0); MEAN CORPUSCULAR HEMOGLOBIN 24.5 pg (27.0-31.0); MEAN CORPUSCULAR HGB CONC 31.4 g/dL (33.0-37.0); MEAN PLATELET VOLUME 7.6 fl (7.2-11.7); MONO # 1.1 K/uL (0.0-0.8); MONO % 12.9 % (0.0-10.0); NEUT # 5.8 K/uL (1.8-7.0); NEUT % 66.3 % (50.0-75.0); RED CELL DISTRIBUTION WIDTH 21.6 % (11.5-14.5); WHITE BLOOD COUNT 8.8 K/uL (4.8-10.8)
[2018-11-08 05:39] LABS: ALBUMIN 4.4 g/dL (3.5-5.0); BLOOD UREA NITROGEN 11 mg/dl (9-20); CALCIUM 9.3 mg/dL (8.4-10.2); GFR NON-AFRICAN AMERICAN > 60
[2018-11-08 05:48] LABS: ALT/SGPT 13 U/L (21-72); AST/SGOT 31 U/L (17-59)
[2018-11-08] MEDS ORDERED: Morphine 4 MG/ML VIAL IVP ONE (06:30)
[2018-11-08] MEDS ORDERED: DiphenhydrAMINE 50 mg/ml Inj IV STA (06:30)
[2018-11-08] MEDS ORDERED: Morphine 4 MG/ML VIAL ONE (06:34)
[2018-11-08 07:31] VITALS: BP 118/77; PULSE 81; RESP 18; TEMP 98.4
--- NOTE | 2018-11-08 09:18 | CT ---
Date of service: 11/08/2018 PROCEDURE: CT HEAD WITHOUT CONTRAST. HISTORY: right side head/facial pain COMPARISON: None available. TECHNIQUE: Axial computed tomography images were obtained through the head/brain without intravenous contrast. Radiation dose: Total exam DLP = 805.57 mGy-cm. This CT exam was performed using one or more of the following dose reduction techniques: Automated exposure control, adjustment of the mA and/or kV according to patient size, and/or use of iterative reconstruction technique. FINDINGS: HEMORRHAGE: No intracranial hemorrhage. BRAIN: Normal avendano-white matter differentiation and density are appreciated throughout the cerebrum and cerebellum with the brainstem appearing unremarkable as well. There is no mass effect. There is no suspicious extra-axial fluid collection and the midline brain anatomy appears diffusely unremarkable. VENTRICLES: Unremarkable. No hydrocephalus. CALVARIUM: Unremarkable. PARANASAL SINUSES: Bilateral ethmoid sinusitis identified bilaterally. MASTOID AIR CELLS: Unremarkable as visualized. No inflammatory changes. OTHER FINDINGS: None. IMPRESSION: No acute intracranial findings. Bilateral ethmoid sinusitis identified. Concordant preliminary report from [facility], 11/08/2018 5:40 a.m..
[2018-11-11 14:22] VITALS: O2SAT 98
== END 2018-11-08 07:25 | disposition home or self-care (01) ==
LOC: H.ER 04:25
DX: R51 Headache (principal); K50.90 Crohn's disease, unspecified, without complications
CPT/HCPCS: 70450; 80053; 85025; 85651; 96374; 99285; J1200; J1885; J2060; J2270